=== PATIENT | female | born 1980 | race Caucasian/White ===

== ENCOUNTER 2017-04-08 08:19 | Outpatient (RCR) | payer MEDICAID | END 2017-04-22 15:24 | disposition home or self-care (01) | PROVIDERS: ATTEND Nurse Practitioner Adult Health | DX: M54.41 Lumbago with sciatica, right side (principal); M54.42 Lumbago with sciatica, left side ==

== ENCOUNTER → 2018-05-31 | Outpatient (CLI) | payer MEDICAID ==
--- NOTE | 2018-05-31 10:55 | Diagnostic Imaging Report ---
Clinical indication: Patient with chronic hepatitis C. Exam: Ultrasound of the right upper quadrant. Comparison: None. Findings: Limited exam due to patient body habitus. The pancreas is visualized on this exam and obscured by patient body habitus. There appears to be grossly normal echogenicity and echotexture involving the liver, as visualized. The main portal vein demonstrates hepatopetal flow. The liver surface is smooth. The liver is mildly enlarged measuring 17 cm. There is no intrahepatic ductal dilation. Common bile duct is obscured and unable to be measured. Gallbladder shows no stones or sludge and is unremarkable. There is no pericholecystic fluid. Right kidney is unremarkable. No hydronephrosis or mass. Right kidney measures 11.7 cm in craniocaudal dimension. There is no abdominal ascites. Impression: 1: Mild hepatomegaly. Otherwise, there is no other gross abnormality involving the liver. 2: Incomplete visualization of the pancreas. If there is clinical concern for pancreatic abnormality, serology tests or CT scan may better evaluate. 3: Common bile duct is obscured and could not be evaluated. Dictated by: Dictated on workstation # [id number]
== END ==
LOC: RAD 06:52
PROVIDERS: ATTEND Internal Medicine Infectious Disease
DX: B18.2 Chronic viral hepatitis C (principal)
CPT/HCPCS: 36415; 76705

== ENCOUNTER 2018-06-04 16:04 | Emergency (ER) | payer MEDICAID ==
[~2018-06-04] VITALS: Ht 182.9 cm; Wt 120.4 kg
--- OUTSIDE RECORDS SUMMARY | 2018-06-04 16:08 | XMS REPORT ---
Author Author ALAN MORALES [facility] Address [address] [place] [address] Care Team Providers Care Child Health Associate Name Role Phone GAURANG BORDEN Unavailable ALAN MORALES Unavailable Problems Problem SNOMED Onset Date Resolved Date Status Mental health problem 782586005 Active Drug therapy finding 279281280 Active Severe recurrent major depression without psychotic features 53390044 Active Allergies, Adverse Reactions Substance Code Type Code Type Reaction Severity Status SULFA (sulfonamide) SNOMED CT Active Care Plan Goal Instructions Client will be functioning more independently with supports and have a life worth living. Engage with treatment team to build rapport. Learn and practice coping skills to reduce symptoms and improve functioning. The following Services will be utilized 1 - 3 times until goal is reached: Improve and maintain functioning through medical psychiatric services. Initial Psychiatric Evaluation, Ongoing medication monitoring and management , Case Conference with multidisciplinary members of the [facility] team as indicated, and/or Collaboration and coordination with outside medical providers as indicated by providing the following services: 76185 interactive complexity 51975 psychiatric diagnostic eval w/ meds 28749 30 min psychotherapy add-on 44885 45 [place] [address] 60 min psychotherapy add-on 65161 med injection 79268 New Patient E&M (level 1) 66947 New Patient E&M (level 2) 12673 New Patient E&M (level 3) 90557 New patient E&M (level 4) 65021 New Patient E&M (level 5) 44579 Established Patient E&M (level 1) 14336 Established Patient E&M (level 2) 75018 Established Patient E&M (level 3) 76364 Established Patient E&M (level 4) 61120 Established Patient E&M (level 5 ) 9935x prolonged service code 80379 case conference w/o clt & pauline w/ 28720 case conference w/o clt w/ H0038 Peer Support Christiana Client will be functioning more independently with supports and have a life worth living. Engage with treatment team to build rapport. Learn and practice coping skills to reduce symptoms and improve functioning. The following Services will be utilized 1 - 3 times until goal is reached: Improve and maintain functioning through medical psychiatric services. Initial Psychiatric Evaluation, Ongoing medication monitoring and management , Case Conference with multidisciplinary members of the [facility] team as indicated, and/or Collaboration and coordination with outside medical providers as indicated by providing the following services: 43059 interactive complexity 21303 psychiatric diagnostic eval w/ meds 83919 30 min psychotherapy add-on 28622 45 [place] [address] 60 min psychotherapy add-on 77975 med injection 19808 New Patient E&M (level 1) 25678 New Patient E&M (level 2) 42743 New Patient E&M (level 3) 32140 New patient E&M (level 4) 79392 New Patient E&M (level 5) 64771 Established Patient E&M (level 1) 10628 Established Patient E&M (level 2) 61930 Established Patient E&M (level 3) 85560 Established Patient E&M (level 4) 38850 Established Patient E&M (level 5 ) 9935x prolonged service code 85912 case conference w/o derian & pauline w/ 23638 case conference w/o derian costa/ H0038 Peer Support Christiana Medications Medication Code Dose,Form,Route,Freq Start Date End Date Venlafaxine HCl - 150 MG ORAL Capsule, Extended Release 682481 Take one (1) capsule by mouth every morning Venlafaxine HCl - 75 MG ORAL Capsule, Extended Release 331223 Take one (1) capsule by mouth every morning Prazosin HCl - 5 MG ORAL Capsule 19801220 Take two (2) capsules by mouth at bedtime Melatonin - 5 MG ORAL Capsule 19951227 Take one (1) capsule by mouth at bedtime Lab Results NA Encounters Date Time Service Code Provider 09:45:00 am ALAN MORALES Family History Functional Status NA Immunizations NA Vital Signs Date Time BP Pulse Temp Height Weight BMI 02:09:00 pm 160 over 103 86 bpm 72 in 293.4 lbs 39.8 kg/m^2 Social History Date Smoking Status SNOMED Code Current Every Day Smoker 325840191 Hospital Discharge Instructions NA Instructions * Not Applicable Procedures Date Procedure Code Type Code Provider Volatile drug screen (procedure) SNOMED CT 346433892 Purpose Electronic Copy
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
--- OUTSIDE RECORDS SUMMARY | 2018-06-04 16:10 | XMS REPORT ---
Author Author JORGE ALBERTO DIOR [facility] Address [address] [place] [address] Care Team Providers Care Cop Breaker Name Role Phone JORGE ALBERTO DIOR Unavailable PROBLEMS Type Condition ICD9-CM Code [id number] Code Onset Dates Condition Status SNOMED Code Problem Hep C w/o coma, chronic B18.2 Active 572407635 Problem Seasonal allergic rhinitis, unspecified allergic rhinitis trigger J30.2 Active 347844857 Problem Migraine without aura and without status migrainosus, not intractable G43.009 Active 153601692 Problem Lumbago with sciatica, unspecified side M54.40 Active 882559125 Problem Polysubstance (including opioids) dependence w/o physiol dependence F19.20 Active 94882756 Problem Chronic post-traumatic stress disorder (PTSD) F43.12 Active 559105058 Problem Blood pressure elevated without history of HTN R03.0 Active 614396125 Problem Other depression F32.8 Active 061163483 ALLERGIES Unknown Allergies SOCIAL HISTORY No smoking Hx information available PLAN OF CARE VITAL SIGNS MEDICATIONS Medication Instructions Dosage Frequency Start Date End Date Duration Status Naproxen 500 MG Orally every 12 hrs 1 tablet as needed 12h 19 Aug, 2016 30 days Active Tamiflu 75 MG Orally Once a day 1 capsule 24h Sep, 10 days Active RESULTS No Results PROCEDURES No Known procedures IMMUNIZATIONS No Known Immunizations
--- OUTSIDE RECORDS SUMMARY | 2018-06-04 16:10 | XMS REPORT ---
Author Author JORGE ALBERTO DIOR [facility] Address [address] [place] [address] Care Team Providers Care Photo Technologist Name Role Phone JORGE ALBERTO DIOR Unavailable PROBLEMS Type Condition ICD9-CM Code [id number] Code Onset Dates Condition Status SNOMED Code Problem Hep C w/o coma, chronic B18.2 Active 276139322 Problem Seasonal allergic rhinitis, unspecified allergic rhinitis trigger J30.2 Active 999828493 Problem Migraine without aura and without status migrainosus, not intractable G43.009 Active 921809627 Problem Lumbago with sciatica, unspecified side M54.40 Active 984031204 Problem Polysubstance (including opioids) dependence w/o physiol dependence F19.20 Active 61601521 Problem Chronic post-traumatic stress disorder (PTSD) F43.12 Active 513631860 Problem Blood pressure elevated without history of HTN R03.0 Active 450319023 Problem Other depression F32.8 Active 510215116 ALLERGIES Substance Reaction Event Type Date Status Sulfacetamide Sodium Unknown Drug Allergy Aug, Active SOCIAL HISTORY No smoking Hx information available PLAN OF CARE Activity Details Follow Up 4 Weeks Reason:depression VITAL SIGNS Height 72 in 2016-09-08 Weight 292.2 lbs 2016-09-08 Temperature 97.5 degrees Fahrenheit 2016-09-08 Heart Rate 97 bpm 2016-09-08 Respiratory Rate 16 2016-09-08 BMI 39.63 kg/m2 2016-09-08 Blood pressure systolic 130 mmHg 2016-09-08 Blood pressure diastolic 82 mmHg 2016-09-08 MEDICATIONS Medication Instructions Dosage Frequency Start Date End Date Duration Status Trazodone HCl 100 MG Orally Once a day 3 tablet at bedtime 24h Active Prazosin HCl 2 MG Orally Once a day 1 capsule at bedtime 24h Active Naproxen 500 MG Orally every 12 hrs 1 tablet as needed 12h Aug, Active Venlafaxine HCl 75 MG Orally Twice a day 1 tablet with food 12h May, Active Lexapro 20 mg Orally Once a day 1 tablet 24h Active ZyrTEC 10 mg Orally Once a day 1 tablet 24h Jun, Active Flonase 50 MCG/DOSE Nasally twice a day 1 spray in each nostril 12h Jun Active RESULTS No Results PROCEDURES Procedure Date Ordered Related Diagnosis Body Site Office Visit, Est Pt., Level 3 Sep 08, 2016 IMMUNIZATIONS No Known Immunizations
--- OUTSIDE RECORDS SUMMARY | 2018-06-04 16:10 | XMS REPORT ---
Author Author JORGE ALBERTO DIOR [facility] Address [address] [place] [address] Care Team Providers Care Roving Changer Name Role Phone JORGE ALBERTO DIOR Unavailable PROBLEMS Type Condition ICD9-CM Code LMJ66-GV Code Onset Dates Condition Status SNOMED Code Problem Hep C w/o coma, chronic B18.2 Active 388770088 Problem Seasonal allergic rhinitis, unspecified allergic rhinitis trigger J30.2 Active 386458291 Problem Migraine without aura and without status migrainosus, not intractable G43.009 Active 324711190 Problem Lumbago with sciatica, unspecified side M54.40 Active 535491693 Problem Polysubstance (including opioids) dependence w/o physiol dependence F19.20 Active 96584379 Problem Chronic post-traumatic stress disorder (PTSD) F43.12 Active 480669082 Problem Blood pressure elevated without history of HTN R03.0 Active 839127221 Problem Other depression F32.8 Active 303820848 ALLERGIES Unknown Allergies SOCIAL HISTORY No smoking Hx information available PLAN OF CARE VITAL SIGNS MEDICATIONS Medication Instructions Dosage Frequency Start Date End Date Duration Status Trazodone HCl 100 MG Orally Once a day 3 tablet at bedtime 24h 0 days Active RESULTS No Results PROCEDURES No Known procedures IMMUNIZATIONS No Known Immunizations
--- OUTSIDE RECORDS SUMMARY | 2018-06-04 16:10 | XMS REPORT ---
Author Author JORGE ALBERTO DIOR Organization [employer] Address Unknown Phone Unavailable Care Team Providers Care Check Writer Name Role Phone JORGE ALBEROT DIOR CP Unavailable Allergies No Known Allergies Problems Problem Type Condition Code Onset Dates Condition Status Problem Hep C w/o coma, chronic B18.2 Active Problem Other depression F32.8 Active Problem Seasonal allergic rhinitis, unspecified allergic rhinitis trigger J30.2 Active Problem Sciatica 724.3 Active Problem Other affections of shoulder region, not elsewhere classified 726.2 Active Problem Influenza with other respiratory manifestations 487.1 Active Medications Medication Code System Code Instructions Start Date End Date Status Dosage Venlafaxine HCl [facility] [address]-79 50 mg Orally Twice a day May 27, 2016 1 tablet with food Trazodone HCl [facility] [address]-40 100 MG Orally Once a day 3 tablet at bedtime Lexapro [facility] [address]-56 20 mg Orally Once a day 1 tablet Prazosin HCl [facility] [address]-56 2 MG Orally Once a day 1 capsule at bedtime ZyrTEC NDC 0 10 mg Orally Once a day Jul 01, 2016 1 tablet Results No Known Results Summary Purpose [employer] Submission
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
--- OUTSIDE RECORDS SUMMARY | 2018-06-04 16:11 | XMS REPORT ---
Author Author JORGE ALBERTO DIOR Organization [employer] Address Unknown Phone Unavailable Care Team Providers Care Auto Cleaner Name Role Phone JORGE ALBERTO DIOR CP Unavailable Allergies, Adverse Reactions, Alerts Substance Reaction Event Type Sulfacetamide Sodium Info Not Available Drug Allergy Problems Problem Type Condition Code Onset Dates Condition Status Problem Other affections of shoulder region, not elsewhere classified 726.2 Active Problem Influenza with other respiratory manifestations 487.1 Active Problem Other depression F32.8 Active Problem Sciatica 724.3 Active Assessment Other depression F32.8 Active Medications Medication Code System Code Instructions Start Date End Date Status Dosage Prazosin HCl [facility] [address]-62 1 MG Orally Once a day 1 capsule at bedtime Trazodone HCl [facility] [address]-42 100 MG Orally Once a day 3 tablet at bedtime Lexapro [facility] [address]-50 20 mg Orally Once a day 1 tablet Procedures Procedure Coding System Code Date Office Visit, Est Pt., Level 3 CPT-4 64343 Apr 24, 2016 Vital Signs Date/Time: Apr 24, 2016 Cardiac Monitoring Heart Rate 96 bpm Weight 302.2 lbs Height 72 in BMI 40.98 Index Blood Pressure Diastolic 98 mmHg Blood Pressure Systolic 142 mmHg Results No Known Results Summary Purpose [employer] Submission
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
--- OUTSIDE RECORDS SUMMARY | 2018-06-04 16:12 | XMS REPORT ---
Author Author PATRIC Porter Organization [facility] Address [address] [place] [address] Care Team Providers Care Hand I Blocker Name Role Phone German PATRIC Unavailable PROBLEMS Type Condition ICD9-CM Code EKT07-IN Code Onset Dates Condition Status SNOMED Code Problem Migraine without aura and without status migrainosus, not intractable G43.009 Active 740740159 Problem PTSD (post-traumatic stress disorder) F43.10 Active 36673368 Problem Moderate episode of recurrent major depressive disorder F33.1 Active 666829160 Problem Abnormal menstrual periods N92.6 Active 071058211 Problem Alcohol use disorder, severe, dependence F10.20 Active 050286311 Problem Other chronic pain G89.29 Active 01964593 Problem Low back pain M54.5 Active 355503446 Problem Methamphetamine use disorder, 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 Active 136754595 Problem Borderline personality disorder F60.3 Active 01425316 Problem Seasonal allergic rhinitis, unspecified allergic rhinitis trigger J30.2 Active 980924572 Problem Polysubstance (including opioids) dependence w/o physiol dependence F19.20 Active 73040678 Problem Blood pressure elevated without history of HTN R03.0 Active 330669170 Problem Hep C w/o coma, chronic B18.2 Active 584337143 Problem Other depression F32.8 Active 803034965 Problem Chronic post-traumatic stress disorder (PTSD) F43.12 Active 111436724 Problem Lumbago with sciatica, unspecified side M54.40 Active 576237846 ALLERGIES No Information ENCOUNTERS Encounter Location Date Diagnosis [facility] [id number] [address] Dec, [facility] [address] [facility] [id number] [address]- [address] 13 Nov, 2017 Abnormal menstrual periods N92.6 [facility] [address] [address]- 7325 Nov, Abnormal menstrual periods N92.6 ; PTSD (post-traumatic stress disorder) F43.10 ; Moderate episode of recurrent major depressive disorder F33.1 ; Alcohol use disorder, severe, dependence F10.20 and Methamphetamine use disorder, 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 [facility] [id number] [place] [address] 28402- 6550 Aug, Chronic post-traumatic stress disorder (PTSD) F43.12 and Moderate episode of recurrent major depressive disorder F33.1 [address] [id number] Jul, [id number] [place] [address] [id number] Jul, [place] [id number] [place] [address] 03416- 0996 Jun, [place] [id number] [place] [address] 54912- 0010 Jun, [place] [id number] [place] [address] 50545- 5747 Jun, [place] [id number] [place] [address] 37524- 6144 Jun, Encounter for test, result unknown Z32.00 ; Borderline personality disorder F60.3 ; Moderate episode of recurrent major depressive disorder F33.1 ; PTSD (post-traumatic stress disorder) F43.10 ; Low back pain M54.5 and Other chronic pain G89.29 [facility] [address] [place] [address] 56270- 2077 Apr, Chronic post-traumatic stress disorder (PTSD) F43.12 [facility] [id number] [place] [address] 76560- 6413 Mar, Blood pressure elevated without history of HTN R03.0 [facility] [id number] [place] [address] 78044- 8387 Mar, Chronic post-traumatic stress disorder (PTSD) F43.12 [facility] [address] [address]- 0956 Mar, [place] [address] [place] [address] 84267- 1228 Feb, Chronic post-traumatic stress disorder (PTSD) F43.12 [place] [address] [address]- 6479 Feb, [place] [address] [place] [address] 26252- 1247 Feb, [place] [id number] [place] [address] 78205- 5816 Feb, Polysubstance (including opioids) dependence w/o physiol dependence F19.20 [id number] [place] [address] 39488- 0900 Feb, Seasonal allergic rhinitis, unspecified allergic rhinitis trigger J30.2 ; Chronic post-traumatic stress disorder (PTSD) F43.12 ; Migraine without aura and without status migrainosus, not intractable G43.009 ; Blood pressure elevated without history of HTN R03.0 ; Lumbago with sciatica, unspecified side M54.40 ; Hx of herpes genitalis Z86.19 and History of drug abuse Z87.898 [address] [place] [address] 43849- 7938 Feb, [place] [address] [place] [address] 89734- 8579 Feb, Chronic post-traumatic stress disorder (PTSD) F43.12 and Polysubstance (including opioids) dependence w/o physiol dependence F19.20 [place] [address] [place] [address] 61153- 4386 Feb, Migraine without aura and without status migrainosus, not intractable G43.009 ; Blood pressure elevated without history of HTN R03.0 and Screening cholesterol level Z13.220 [place] [id number] [place] [address] 06757- 9493 Feb, Migraine without aura and without status migrainosus, not intractable G43.009 ; Blood pressure elevated without history of HTN R03.0 ; Hep C w/o coma, chronic B18.2 ; Lumbago with sciatica, unspecified side M54.40 ; Other depression F32.8 ; Seasonal allergic rhinitis, unspecified allergic rhinitis trigger J30.2 and Screening cholesterol level Z13.220 [place] [address] [address]26- 5683 January, [place] [address] 12239- 4281 January, Migraine without aura and without status migrainosus, not intractable G43.009 [place] [address] 09821- 2021 January, Chronic post-traumatic stress disorder (PTSD) F43.12 and Polysubstance (including opioids) dependence w/o physiol dependence F19.20 [place] [id number] [place] [address] 18269- 4909 January, Routine gynecological examination Z01.419 and Routine screening for STI (sexually transmitted infection) Z11.3 [facility] [id number] [place] [address] [phone] Sep, Other depression F32.8 [facility] [id number] [place] [address] [id number] Sep, Other depression F32.8 and Seasonal allergic rhinitis, unspecified allergic rhinitis trigger J30.2 [facility] [id number] [place] [address] [id number] Sep, Other depression F32.8 [facility] [address] [id number] Aug, Other depression F32.8 ; Pain in right ankle and joints of right foot M25.571 and Hep C w/o coma, chronic B18.2 [facility] [address] [id number] Aug, [facility] [id number] [place] [address] [id number] Jul, [facility] [id number] [place] [address] [id number] Jun, Other depression F32.8 ; Seasonal allergic rhinitis, unspecified allergic rhinitis trigger J30.2 and Hep C w/o coma, chronic B18.2 [facility] [id number] [place] [address] [id number] May, Other depression F32.8 [facility] [id number] [place] [address] [id number] Apr, Other depression F32.8 [facility] [address] 7[address]01- 2146 Dec, [facility] [address] 20710- 4865 Dec, [facility] [address] 21456- 2546 Aug, [facility] [id number] [place] [address] 47305- 2543 Aug, [facility] [id number] [place] [address] [id number] Apr, [facility] [id number] [place] [address] 22042- 2546 Apr, [facility] [id number] [place] [address] [id number] Mar, [facility] [id number] [place] [address] [id number] January, [facility] [id number] [place] [address] [id number] January, [facility] [id number] [place] [address] [id number] January, [facility] [id number] [place] [address] [id number] Oct, [facility] [id number] [place] [address] [id number] Mar, [facility] [address] [facility] [id number] [place] [address]- 8542 Aug, [facility] [place] [facility] [address] [id number] [place] 1449 Aug, [facility] [place] [facility] [address] [facility] [id number] [place] [address]- 2907 Aug, [facility] [place] [facility] [address] [id number] [place] [address]- 2874 Aug, [facility] [place] [facility] [address] [facility] [id number] [place] [address]- 6354 Aug, [facility] [place] [facility] [address] [id number] [place] [address]- 9423 Jul, [facility] [place] [facility] [address] [facility] [id number] [address]- 3632 Jul, [facility] [place] [facility] [address] [facility] [id number] [place] [address]- 1251 Jul, [facility] [place] [facility] [address] [facility] [id number] [address]- 8697 Jun, [facility] [place] [facility] [address] [facility] [id number] [place] [address]- 2899 Apr, [facility] [place] [facility] [address] [facility] [id number] [place] [address]- 6763 Aug, [facility] [place] [facility] [address] [facility] [id number] [place] [address]- 6755 Aug, [facility] [place] [facility] [address] [facility] [id number] [place] [address]- 8156 Aug, [facility] [place] [facility] [address] [facility] [id number] [place] [address]- 6120 Jul, [facility] [place] [facility] [address] [facility] [id number] [place] [address]- 3684 Jul, [facility] [place] [facility] [address] [facility] [id number] [place] [address]- 4966 Nov, [facility] [address] [facility] [id number] [place] [address]- 2674 Oct, [facility] [address] [id number] [address]- 0593 Sep, [facility] [address] [facility] [id number] [place] [address]- 9020 Aug, [facility] [address] [facility] [id number] [place] [address]- 2025 Feb, IMMUNIZATIONS No Known Immunizations SOCIAL HISTORY Never Assessed REASON FOR VISIT Requests return call PLAN OF CARE VITAL SIGNS MEDICATIONS Unknown [...] frontal lobe from car acciedent/ hospital in [place] 2007 Hospitalization History [facility]-Mental stay 2016
--- OUTSIDE RECORDS SUMMARY | 2018-06-04 16:12 | XMS REPORT ---
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 Name Role Phone German PATRIC Unavailable PROBLEMS Type Condition ICD9-CM Code HZI35-VO Code Onset Dates Condition Status SNOMED Code Problem Migraine without aura and without status migrainosus, not intractable G43.009 Active 350639529 Problem PTSD (post-traumatic stress disorder) F43.10 Active 71868423 Problem Moderate episode of recurrent major depressive disorder F33.1 Active 508333100 Problem Abnormal menstrual periods N92.6 Active 619693889 Problem Alcohol use disorder, severe, dependence F10.20 Active 536059644 Problem Other chronic pain G89.29 Active 85374808 Problem Low back pain M54.5 Active 310963478 Problem Methamphetamine use disorder, 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 Active 839191784 Problem Borderline personality disorder F60.3 Active 59715940 Problem Seasonal allergic rhinitis, unspecified allergic rhinitis trigger J30.2 Active 334922928 Problem Polysubstance (including opioids) dependence w/o physiol dependence F19.20 Active 13176805 Problem Blood pressure elevated without history of HTN R03.0 Active 882139866 Problem Hep C w/o coma, chronic B18.2 Active 373966814 Problem Other depression F32.8 Active 631988980 Problem Chronic post-traumatic stress disorder (PTSD) F43.12 Active 848280436 Problem Lumbago with sciatica, unspecified side M54.40 Active 342329707 ALLERGIES No Information ENCOUNTERS Encounter Location Date Diagnosis [facility] [id number], [place] [address] Dec, [facility] [address] [facility] [id number], [place] [address] 13 Nov, 2017 Abnormal menstrual periods N92.6 [facility] [address], [place] [address] Nov, Abnormal menstrual periods N92.6 ; PTSD (post-traumatic stress disorder) F43.10 ; Moderate episode of recurrent major depressive disorder F33.1 ; Alcohol use disorder, severe, dependence F10.20 and Methamphetamine use disorder, 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 [facility] [id number] [place] [address] Aug, Chronic post-traumatic stress disorder (PTSD) F43.12 and Moderate episode of recurrent major depressive disorder F33.1 [address] [id number] Jul, [id number] [place] [id number] Jul, [id number] [place] [address] Jun, [place] [id number] [place] [address] Jun, [place] [id number] [place] [address]- [address] Jun, [place] [place] [id number] [place] [address] Jun, Encounter for test, result unknown Z32.00 ; Borderline personality disorder F60.3 ; Moderate episode of recurrent major depressive disorder F33.1 ; PTSD (post-traumatic stress disorder) F43.10 ; Low back pain M54.5 and Other chronic pain G89.29 [facility] [address] [place] [address] Apr, Chronic post-traumatic stress disorder (PTSD) F43.12 [facility] [id number] [place] [address] Mar, Blood pressure elevated without history of HTN R03.0 [facility] [id number] [place] [address]- 238[address] Mar, Chronic post-traumatic stress disorder (PTSD) F43.12 [facility] [address], [place] [address] Mar, [address] [place] [address]679[address] 40[address] Feb, Chronic post-traumatic stress disorder (PTSD) F43.12 [place] [place], [place] [address] Feb, [address] [place] [address] [place] [address] 5[address] Feb, [place] [id number] [place] [address]71[address] Feb, Polysubstance (including opioids) dependence w/o physiol dependence F19.20 [id number] [place] [address] Feb, Seasonal allergic rhinitis, unspecified allergic rhinitis trigger J30.2 ; Chronic post-traumatic stress disorder (PTSD) F43.12 ; Migraine without aura and without status migrainosus, not intractable G43.009 ; Blood pressure elevated without history of HTN R03.0 ; Lumbago with sciatica, unspecified side M54.40 ; Hx of herpes genitalis Z86.19 and History of drug abuse Z87.898 [address] [place] [address] 48263- 8[address] Feb, [address] [place] [address]28- 6089 Feb, Chronic post-traumatic stress disorder (PTSD) F43.12 and Polysubstance (including opioids) dependence w/o physiol dependence F19.20 [address] [place] [address] 36066- 8468 Feb, Migraine without aura and without status migrainosus, not intractable G43.009 ; Blood pressure elevated without history of HTN R03.0 and Screening cholesterol level Z13.220 [address] [id number] [place] [address] 76265- 8360 Feb, Migraine without aura and without status migrainosus, not intractable G43.009 ; Blood pressure elevated without history of HTN R03.0 ; Hep C w/o coma, chronic B18.2 ; Lumbago with sciatica, unspecified side M54.40 ; Other depression F32.8 ; Seasonal allergic rhinitis, unspecified allergic rhinitis trigger J30.2 and Screening cholesterol level Z13.220 [address] [address] January, [address] [address] [address] January, Migraine without aura and without status migrainosus, not intractable G43.009 [address] [address] [address] January, Chronic post-traumatic stress disorder (PTSD) F43.12 and Polysubstance (including opioids) dependence w/o physiol dependence F19.20 [address] [id number] [place] [address] January, Routine gynecological examination Z01.419 and Routine screening for STI (sexually transmitted infection) Z11.3 [facility] [id number] [place] [address] [id number] Sep, Other depression F32.8 [facility] [id number] [place] [address] [id number] Sep, Other depression F32.8 and Seasonal allergic rhinitis, unspecified allergic rhinitis trigger J30.2 [facility] [id number] [place] [address] [id number] Sep, Other depression F32.8 [facility] [address] [id number] Aug, Other depression F32.8 ; Pain in right ankle and joints of right foot M25.571 and Hep C w/o coma, chronic B18.2 [facility] [address] [id number] Aug, [facility] [id number] [place] [address] [id number] Jul, [facility] [id number] [place] [address] [phone] Jun, Other depression F32.8 ; Seasonal allergic rhinitis, unspecified allergic rhinitis trigger J30.2 and Hep C w/o coma, chronic B18.2 [facility] [id number] [place] [address] [phone] May, Other depression F32.8 [facility] [id number] [place] [address] [id number] Apr, Other depression F32.8 [facility] [address] [address] Dec, [facility] [address] [address] Dec, [facility] [address] [address] Aug, [facility] [id number] [place] [address] 01484- [address] Aug, [facility] [id number] [place] [address] [id number] Apr, [facility] [id number] [place] [address] 0[address]25- [address] Apr, [facility] [id number] [place] [address] [id number] Mar, [facility] [id number] [place] [address] [id number] January, [facility] [id number] [place] [address] [id number] January, [facility] [id number] [place] [address] [id number] January, [facility] [id number] [place] [address] [id number] Oct, [facility] [id number] [place] [address] [id number] Mar, [facility] [address] [facility] [id number] [place] [address] Aug, [facility] [place] [facility] [address] [id number] [place] Aug, [facility] [place] [facility] [address] [facility] [id number] [place] [address] Aug, [facility] [place] [facility] [address] [id number] [place] [address] Aug, [facility] [place] [facility] [address] [facility] [id number] [place] [address] Aug, [facility] [place] [facility] [address] [id number] [place] [address] Jul, [facility] [place] [facility] [address] [facility] [id number], [place] [address] Jul, [facility] [place] [facility] [address] [facility] [id number] [place] [address]- 0[address] Jul, [facility] [place] [facility] [address] [facility] [id number], [place] [address] Jun, [facility] [place] [facility] [address] [facility] [id number], [place] [address] Apr, [facility] [place] [facility] [address] [facility] [id number], [place] [address] Aug, [facility] [place] [facility] [address] [facility] [id number], [place] [address] Aug, [facility] [place] [facility] [address] [facility] [id number], [place] [address] Aug, [facility] [place] [facility] [address] [facility] [id number], [place] [address] Jul, [facility] [place] [facility] [address] [facility] [id number], [place] [address] Jul, [facility] [place] [facility] [address] [facility] [id number] [place] [address] Nov, [facility] [address] [facility] [id number], [place] [address] Oct, [facility] [address] [facility] [id number], [place] [address] Sep, [facility] [address] [facility] [id number], [place] [address] Aug, [facility] [address] [facility] [id number], [place] [address] Feb, IMMUNIZATIONS No Known Immunizations SOCIAL HISTORY Never Assessed REASON FOR VISIT PT PLAN OF CARE VITAL SIGNS MEDICATIONS Unknown [...] frontal lobe from car acciedent/ hospital in [place] 2007 Hospitalization History [facility]-Mental stay 2016
--- OUTSIDE RECORDS SUMMARY | 2018-06-04 16:12 | XMS REPORT ---
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 Name Role Phone JORGE ALBERTO DIOR CP Unavailable Allergies, Adverse Reactions, Alerts Substance Reaction Event Type Sulfacetamide Sodium Info Not Available Drug Allergy Problems Problem Type Condition Code Onset Dates Condition Status Assessment Seasonal allergic rhinitis, unspecified allergic rhinitis trigger J30.2 Active Assessment Hep C w/o coma, chronic B18.2 Active Problem Hep C w/o coma, chronic B18.2 Active Problem Other depression F32.8 Active Problem Seasonal allergic rhinitis, unspecified allergic rhinitis trigger J30.2 Active Problem Sciatica 724.3 Active Assessment Other depression F32.8 Active Problem Other affections of shoulder region, not elsewhere classified 726.2 Active Problem Influenza with other respiratory manifestations 487.1 Active Medications Medication Code System Code Instructions Start Date End Date Status Dosage Venlafaxine HCl [facility] [address]-75 50 MG Orally Twice a day May 27, 2016 1 tablet with food Xanax [facility] [address]-94 0.5 MG Orally 2 times a day as needed for severe anxiety attacks May 27, 2016 .5-1 tablet Trazodone HCl [facility] [address]-71 100 MG Orally Once a day 3 tablet at bedtime Flonase NDC 0 50 MCG/DOSE Nasally twice a day Jul 01, 2016 1 spray in each nostril ZyrTEC NDC 0 10 mg Orally Once a day Jul 01, 2016 1 tablet Lexapro [facility] [address]-34 20 mg Orally Once a day 1 tablet Prazosin HCl [facility] [address]-49 2 MG Orally Once a day 1 capsule at bedtime Procedures Procedure Coding System Code Date Office Visit, Est Pt., Level 3 CPT-4 40644 Jul 01, 2016 VENIPUNCT, ROUTINE* CPT-4 08352 Jul 01, 2016 [facility]-4 NOBLL Jul 01, 2016 DRUG SCREEN NON TLC DEVICES CPT-4 87683 Jul 01, 2016 Vital Signs Date/Time: Jul 01, 2016 Cardiac Monitoring Heart Rate 88 bpm Weight 300.6 lbs Height 72 in BMI 40.76 Index Blood Pressure Diastolic 70 mmHg Blood Pressure Systolic 126 mmHg Results Name Result Date Reference Range Unit Abnormality Flag HEPATITIS PROFILE ----Hep A Ab, IgM Negative 20160701 Negative ----HBsAg Screen Negative 20160701 Negative ----Hep B Core Ab, IgM Negative 20160701 Negative ----Hep C Virus Ab >11.0 20160701 0.0-0.9 s/co ratio H URINE DRUG SCREEN (IN HOUSE) ----THC neg 20160701 ----MTD neg 20160701 ----BENZO neg 20160701 ----OPIATE neg 20160701 ----BAR neg 20160701 ----OXY neg 20160701 ----PCP neg 20160701 ----BUP neg 20160701 ----COCAINE neg 20160701 ----MDMA neg 20160701 ----AMPH neg 20160701 ----Exp date 20160701 ----MAMP neg 20160701 ----TCA neg 20160701 ----Control + [id number] ----Lot # [id number] Summary Purpose eClinicalWorks Submission
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
[2018-06-04] MEDS ORDERED: PROMETHAZINE/ CODEINE SYRUP 5 ML UDC PO ONE (17:00)
--- NOTE | 2018-06-04 17:35 | ED Cough/URI ---
General Chief Complaint: Cough/Cold/Flu Symptoms Stated Complaint: COUGH/CONGESTION Source: patient Exam Limitations: no limitations History of Present Illness Date Seen by Provider: Jun 04, 2018 Time Seen by Provider: 17:29 Initial Comments Patient is a 38-year-old female who presents to the emergency room with complaints of cough, sore throat and congestion that started last week. She denies fevers. She reports taking fyge-ysn-acazexh cold cough flu medications with minimal relief. Timing/Duration: week Severity/Quality: mild, dry cough Prior Episodes/Possible Cause: no prior episodes Associated Symptoms: cough, nasal congestion, sore throat Allergies and Home Medications Allergies Coded Allergies: Sulfa (Sulfonamides) (Verified Allergy, Unknown, 05/10/07) Patient Home Medication List Home Medication List Reviewed: Yes Review of Systems Review of Systems Constitutional: see HPI; No chills, No fever EENTM: see HPI, nose congestion, throat pain Respiratory: see HPI, cough (dry cough no sputum or phlegm.) All Other Systems Reviewed Negative Unless Noted: Yes Past Hjisyxc-Kszcxk-Dgmgck Hx Past Med/Social Hx: Reviewed Nursing Past Med/Soc Hx Patient Social History Recent Foreign Travel: No Contact w/Someone Who Travel: No Past Medical History Reproductive Disorders: No Family Medical History Reviewed Nursing Family Hx Physical Exam Vital Signs - First Documented 06/04/18 16:43 Temp 98.4 Pulse 112 Resp 16 B/P (MAP) 132/93 (106) Pulse Ox 99 Capillary Refill : Height: '" Weight: lbs. oz. kg; BMI Method: General Appearance: WD/WN, no apparent distress Eyes: Bilateral Eye Normal Inspection, Bilateral Eye PERRL, Bilateral Eye EOMI HEENT: PERRL/EOMI, normal ENT inspection, TMs normal, pharynx normal Respiratory: chest non-tender, lungs clear, normal breath sounds, no respiratory distress, no accessory muscle use Cardiovascular: regular rate, rhythm, no edema, no gallop, no JVD, no murmur Neurologic/Psychiatric: alert, normal mood/affect, oriented x 3 Skin: normal color, warm/dry Progress/Results/Core Measures Suspected Sepsis SIRS Temperature: Pulse: Respiratory Rate: Blood Pressure / Mean: Results/Orders Lab Results Laboratory Tests Test 06/04/18 16:48 Range/Units Group A Streptococcus Screen NEGATIVE NEGATIVE My Orders Orders - SHAVONNE EPPERSON Rapid Strep A Screen (06/04/18 16:50) Promethazine/ Codeine Syrup (Phenergan W (06/04/18 17:00) Medications Given in ED Current Medications Medications Dose Ordered Sig/Karina Route Start Time Stop Time Status Last Admin Dose Admin Promethazine HCl/ Codeine 5 ml ONCE ONCE PO 06/04/18 17:00 06/04/18 17:01 DC 06/04/18 17:11 5 ML Vital Signs/I&O 06/04/18 06/04/18 16:43 17:52 Temp 98.4 Pulse 112 81 Resp 16 16 B/P (MAP) 132/93 (106) 141/76 Pulse Ox 99 99 Capillary Refill : Progress Note : Time: 17:32 Progress Note Seen and evaluated the patient. She's had relief of coughing with medication. I informed her that I'll be sending her prescription for cough syrup. Given her normal exam and non productive cough I believe her symptoms are from a viral illness. She agrees with plans of care, plans for discharge, return precautions given. Departure Impression Primary Impression: Upper respiratory infection Disposition: 01 HOME, SELF-CARE Condition: Stable/Unchanged Departure-Patient Inst. Decision time for Depature: 17:34 Referrals: [facility] (PCP/Family) Primary Care Physician Patient Instructions: Viral Upper Respiratory Infection, Adult (DC) Add. Discharge Instructions: Take cough syrup as directed. Continue to use your kttf-thx-wgbimbn medications as needed for cough cold and flu. Follow-up with your doctor within 1 week for recheck. Return back to the emergency room for any worsening symptoms or concerns as needed. All discharge instructions reviewed with patient and/or family. Voiced understanding. SHAVONNE EPPERSON Jun 04, 2018 17:35
[2018-06-04 17:52] VITALS: BP 141/76
== END 2018-06-04 17:52 | disposition home or self-care (01) ==
LOC: EDUNIT# 16:04 → ER 16:05
DX: J06.9 Acute upper respiratory infection, unspecified (principal); Z88.2 Allergy status to sulfonamides
CPT/HCPCS: 87430

== ENCOUNTER 2018-09-19 09:25 | Emergency (ER) | payer MEDICAID ==
[~2018-09-19] VITALS: Ht 182.9 cm; Wt 140.6 kg
--- OUTSIDE RECORDS SUMMARY | 2018-09-19 09:30 | XMS REPORT ---
Author Author BRYADELA [facility] Address [address] [place] [address] Care Team Providers Care Duct Layer Supervisor Name Role Phone GREERADELA FINNEY Unavailable PROBLEMS Type Condition ICD9-CM Code [id number] Code Onset Dates Condition Status SNOMED Code Problem Moderate episode of recurrent major depressive disorder F33.1 Active 777766235 Problem Abnormal menstrual periods N92.6 Active 049753727 Problem Borderline personality disorder F60.3 Active 00952851 Problem PTSD (post-traumatic stress disorder) F43.10 Active 30284522 Problem Mood disorder F39 Active 36762267 Problem Alcohol use disorder, severe, dependence F10.20 Active 272804010 Problem Methamphetamine use disorder, 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 Active 889855046 Problem Essential hypertension I10 Active 86385413 Problem Spondylolisthesis at L5-S1 level M43.17 Active 393701664 Problem Polysubstance (including opioids) dependence w/o physiol dependence F19.20 Active 62588471 Problem Chronic post-traumatic stress disorder (PTSD) F43.12 Active 561156331 Problem Seasonal allergic rhinitis, unspecified allergic rhinitis trigger J30.2 Active 485602878 Problem Lumbago with sciatica, unspecified side M54.40 Active 012289150 Problem Hep C w/o coma, chronic B18.2 Active 180635465 Problem Migraine without aura and without status migrainosus, not intractable G43.009 Active 377619591 ALLERGIES No Information ENCOUNTERS Encounter Location Date Diagnosis [facility] [address] [id number] [address] Aug, [facility] [address] [address] Jul, [facility] [id number] [address] Jul, [place] [id number] [place] [address] 4048 Jun, PTSD (post-traumatic stress disorder) F43.10 [place] [id number] [place] [address]2093- 7890 Jun, [place] [address] [address] Jun, Weight loss counseling, encounter for Z71.3 ; Encounter for initial prescription of contraceptive pills Z30.011 and BMI 40.0-44.9, adult Z68.41 [place] [id number] [place] [address] 35564- 0102 Jun, PTSD (post-traumatic stress disorder) F43.10 ; Moderate episode of recurrent major depressive disorder F33.1 ; Alcohol use disorder, severe, dependence F10.20 ; Methamphetamine use disorder, 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 ; Mood disorder F39 and BMI 40.0-44.9, adult Z68.41 [place] [id number] [place] [address]69- 7634 27 May, 2018 Hep C w/o coma, chronic B18.2 [place] [id number] [place] [address] 89365- 3596 May, PTSD (post-traumatic stress disorder) F43.10 [place] [id number] [place] [address] 99645- 4084 May, Essential hypertension I10 ; BMI 40.0-44.9, adult Z68.41 ; Weight loss counseling, encounter for Z71.3 and Lumbago with sciatica, unspecified side M54.40 [place] [id number] [place] [address] 93293- 8007 May, Essential hypertension I10 [place] [id number] [place] [address] 87473- 5405 Apr, PTSD (post-traumatic stress disorder) F43.10 ; Moderate episode of recurrent major depressive disorder F33.1 ; Alcohol use disorder, severe, dependence F10.20 ; Methamphetamine use disorder, 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 ; Mood disorder F39 and BMI 40.0-44.9, adult Z68.41 [place] [id number] [place] [address] 49851- 8206 Apr, [facility] [place] [id number] [place] [address] 25749- 6111 Apr, Spondylolisthesis at L5-S1 level M43.17 ; Low back pain M54.5 ; Other chronic pain G89.29 ; Essential hypertension I10 and BMI 40.0-44.9 , adult Z68.41 [place] [address] 540553- 6778 Mar, [facility] [id number] [place] [address] 06366- 7588 Mar, PTSD (post-traumatic stress disorder) F43.10 ; Moderate episode of recurrent major depressive disorder F33.1 ; Alcohol use disorder, severe, dependence F10.20 ; Methamphetamine use disorder, 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 and BMI 40.0-44.9, adult Z68.41 [place] [id number] [place] [address] 25972- 7308 Dec, [place] [id number] [place] [address] 76043- 8047 Dec, Abnormal menstrual periods N92.6 [facility] [place] [id number] [place] [address] 91792- 3606 Nov, Abnormal menstrual periods N92.6 [place] [id number] [place] [address] 40189- 1167 Nov, Abnormal menstrual periods N92.6 ; PTSD (post-traumatic stress disorder) F43.10 ; Moderate episode of recurrent major depressive disorder F33.1 ; Alcohol use disorder, severe, dependence F10.20 and Methamphetamine use disorder, 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 [place] [id number] [place] [address] 40973- 6480 Aug, Chronic post-traumatic stress disorder (PTSD) F43.12 and Moderate episode of recurrent major depressive disorder F33.1 [facility] [id number] [id number] Jul, [facility] [address] [id number] Jul, [facility] [id number] [place] [address] 19900- 9086 Jun, [facility] [id number] [place] [address] 29456- 6322 Jun, [facility] [id number] [place] [address] 85148- 7537 Jun, [place] [id number] [place] [address] 93854- 5133 Jun, Encounter for test, result unknown Z32.00 ; Borderline personality disorder F60.3 ; Moderate episode of recurrent major depressive disorder F33.1 ; PTSD (post-traumatic stress disorder) F43.10 ; Low back pain M54.5 and Other chronic pain G89.29 [place] [id number] [place] [address] 92118- 6223 Apr, Chronic post-traumatic stress disorder (PTSD) F43.12 [facility] [address], [place] [address] Mar, Blood pressure elevated without history of HTN R03.0 [facility] [address], [place] [address] Mar, Chronic post-traumatic stress disorder (PTSD) F43.12 [facility] [address], [place] [address] Mar, [facility] [id number] [place] [address] 20683- 8715 Feb, Chronic post-traumatic stress disorder (PTSD) F43.12 [facility] [id number] [place] [address] 12846- 9750 Feb, [place] [id number] [place] [address] 42506- 4740 Feb, [facility] [place] [id number] [place] [address] 13648- 5474 Feb, Polysubstance (including opioids) dependence w/o physiol dependence F19.20 [facility] [place] [id number] [place] [address] 58366- 6835 Feb, Seasonal allergic rhinitis, unspecified allergic rhinitis trigger J30.2 ; Chronic post-traumatic stress disorder (PTSD) F43.12 ; Migraine without aura and without status migrainosus, not intractable G43.009 ; Blood pressure elevated without history of HTN R03.0 ; Lumbago with sciatica, unspecified side M54.40 ; Hx of herpes genitalis Z86.19 and History of drug abuse Z87.898 [place] [id number] [place] [address] 32361- 9650 Feb, [place] [id number] [place] [address] 84399- 2827 Feb, Chronic post-traumatic stress disorder (PTSD) F43.12 and Polysubstance (including opioids) dependence w/o physiol dependence F19.20 [place] [address] [place] [address] 78650- 7493 Feb, Migraine without aura and without status migrainosus, not intractable G43.009 ; Blood pressure elevated without history of HTN R03.0 and Screening cholesterol level Z13.220 [place] [address] [place] [address] 63255- 3873 05 Feb, 2017 Migraine without aura and without status migrainosus, not intractable G43.009 ; Blood pressure elevated without history of HTN R03.0 ; Hep C w/o coma, chronic B18.2 ; Lumbago with sciatica, unspecified side M54.40 ; Other depression F32.8 ; Seasonal allergic rhinitis, unspecified allergic rhinitis trigger J30.2 and Screening cholesterol level Z13.220 [place] [id number] [place] [address] 77746- 7079 January, [place] [address] [address] January, Migraine without aura and without status migrainosus, not intractable G43.009 [place] [id number] [place] [address] 80734- 1984 January, Chronic post-traumatic stress disorder (PTSD) F43.12 and Polysubstance (including opioids) dependence w/o physiol dependence F19.20 [place] [id number] [place] [address] 27915- 8030 January, Routine gynecological examination Z01.419 and Routine screening for STI (sexually transmitted infection) Z11.3 [facility] [address] [id number] Sep, Other depression F32.8 [facility] [address] [id number] Sep, Other depression F32.8 and Seasonal allergic rhinitis, unspecified allergic rhinitis trigger J30.2 [facility] [address] [id number] Sep, Other depression F32.8 [facility] [id number] [place] [address] [id number] Aug, Other depression F32.8 ; Pain in right ankle and joints of right foot M25.571 and Hep C w/o coma, chronic B18.2 [facility] [id number] [place] [address] [id number] Aug, [facility] [id number] [place] [address] [id number] Jul, [facility] [address] [id number] Jun, Other depression F32.8 ; Seasonal allergic rhinitis, unspecified allergic rhinitis trigger J30.2 and Hep C w/o coma, chronic B18.2 [facility] [address] [place] [id number] May, Other depression F32.8 [facility] [id number] [place] [address] [id number] Apr, Other depression F32.8 [facility] [id number] [place] [address] 71449- 4669 Dec, [facility] [id number] [place] [address] 57001- 4245 Dec, [facility] [id number] [place] [address] 86883- 9786 Aug, [facility] [id number] [place] [address] 21765- 9804 Aug, [facility] [id number] [place] [address] [id number] Apr, [facility] [id number] [place] [address] 00558- 2546 Apr, [facility] [id number] [id number] Mar, [facility] [id number] [place] [address] [id number] January, [facility] [id number] [place] [address] [id number] January, [facility] [id number] [id number] January, [facility] [id number] [id number] Oct, [facility] [address] [id number] [id number] Mar, [facility] [address] [place] [address] 36816- 0780 Aug, [facility] [place] [facility] [address], [place] [address] Aug, [facility] [address] [address] Aug, [facility] [place] [facility] [address] [id number] [place] [address] 2549 05 Aug, 2011 [facility] [place] [facility] [address] [id number] [place] [address]- 7200 Aug, [facility] [place] [facility] [address] [id number] [place] [address]- 3686 Jul, [facility] [place] [facility] [address] [id number] [place] [address]- 4675 Jul, [facility] [place] [facility] [address] [id number] [place] [address]- 4396 Jul, [facility] [place] [facility] [address] [id number] [place] [address]- 4939 Jun, [facility] [address] [id number] [place] [address]- 0842 Apr, [facility] [address] [id number] [place] [address]- 4383 Aug, [facility] [place] [facility] [address] [id number] [place] [address]- 0315 15 Aug, 2010 [facility] [place] [facility] [address] [id number] [place] [address]- 8903 Aug, [facility] [place] [facility] [address] [id number] [place] [address]- 4388 Jul, [facility] [place] [facility] [address] [id number] [place] [address]- 9446 Jul, [facility] [place] [facility] [address] [id number] [place] [address]- 1486 Nov, [facility] [place] [facility] [address] [id number] [place] [address]- 8776 10 Oct, 2009 [facility] [place] [facility] [address] [id number] [place] [address]- 2546 14 Sep, 2009 [facility] [place] [facility] [address] [id number] [place] [address]- [address] Aug, [facility] [address] [id number] [place] [address]- 2546 Feb, IMMUNIZATIONS No Known Immunizations SOCIAL HISTORY Never Assessed REASON FOR VISIT anxiety PLAN OF CARE VITAL SIGNS MEDICATIONS Medication Instructions Dosage Frequency Start Date End Date Duration Status Latuda 60 MG Orally Once a day 1 tablet with food 24h Apr, 30 days Active RESULTS No Results PROCEDURES [...] frontal lobe from car acciedent/ hospital in [place] 2007 Hospitalization History [facility]-Mental stay 2016
--- OUTSIDE RECORDS SUMMARY | 2018-09-19 09:31 | XMS REPORT ---
Author Author ARY MCCAULEY [facility] Address [address] [place] [address] Care Team Providers Care Curtain Framer Name Role Phone ARY MCCAULEY Unavailable PROBLEMS Type Condition ICD9-CM Code [id number] Code Onset Dates Condition Status SNOMED Code Problem Moderate episode of recurrent major depressive disorder F33.1 Active 124223846 Problem Abnormal menstrual periods N92.6 Active 930989069 Problem Borderline personality disorder F60.3 Active 63938589 Problem PTSD (post-traumatic stress disorder) F43.10 Active 72988226 Problem Mood disorder F39 Active 24142722 Problem Alcohol use disorder, severe, dependence F10.20 Active 287157580 Problem Methamphetamine use disorder, 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 Active 723533122 Problem Essential hypertension I10 Active 22931009 Problem Spondylolisthesis at L5-S1 level M43.17 Active 482281390 Problem Polysubstance (including opioids) dependence w/o physiol dependence F19.20 Active 03133074 Problem Chronic post-traumatic stress disorder (PTSD) F43.12 Active 406748449 Problem Seasonal allergic rhinitis, unspecified allergic rhinitis trigger J30.2 Active 475517530 Problem Lumbago with sciatica, unspecified side M54.40 Active 982865932 Problem Hep C w/o coma, chronic B18.2 Active 847162863 Problem Migraine without aura and without status migrainosus, not intractable G43.009 Active 038332385 ALLERGIES No Information ENCOUNTERS Encounter Location Date Diagnosis [facility] [address] [facility] [id number] [address] Aug, [facility] [address] [id number] [address] Jun, [facility] [address] [id number], [place] [address] Jun, PTSD (post-traumatic stress disorder) F43.10 ; Moderate episode of recurrent major depressive disorder F33.1 ; Alcohol use disorder, severe, dependence F10.20 ; Methamphetamine use disorder, 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 ; Mood disorder F39 and BMI 40.0-44.9, adult Z68.41 [place] [id number] [place] [address] May, Hep C w/o coma, chronic B18.2 [place] [address] [address] May, PTSD (post-traumatic stress disorder) F43.10 [place] [address] [address] May, Essential hypertension I10 ; BMI 40.0-44.9, adult Z68.41 ; Weight loss counseling, encounter for Z71.3 and Lumbago with sciatica, unspecified side M54.40 [place] [address] [address] May, Essential hypertension I10 [address] [address] Apr, PTSD (post-traumatic stress disorder) F43.10 ; Moderate episode of recurrent major depressive disorder F33.1 ; Alcohol use disorder, severe, dependence F10.20 ; Methamphetamine use disorder, 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 ; Mood disorder F39 and BMI 40.0-44.9, adult Z68.41 [place] [id number] [place] [address]12- 2547 17 Apr, [address] [address] 13 Apr, 2018 Spondylolisthesis at L5-S1 level M43.17 ; Low back pain M54.5 ; Other chronic pain G89.29 ; Essential hypertension I10 and BMI 40.0-44.9 , adult Z68.41 [place] [address] [address] Mar, [place] [address] [place] [address]70- 0017 Mar, PTSD (post-traumatic stress disorder) F43.10 ; Moderate episode of recurrent major depressive disorder F33.1 ; Alcohol use disorder, severe, dependence F10.20 ; Methamphetamine use disorder, 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 and BMI 40.0-44.9, adult Z68.41 [place] [id number] [place] [address] 76517- 0483 Dec, [place] [id number] [place] [address] 24803- 1395 Dec, Abnormal menstrual periods N92.6 [place] [id number] [place] [address] 07622- 8101 Nov, Abnormal menstrual periods N92.6 [place] [id number] [place] [address] 05279- 8767 Nov, Abnormal menstrual periods N92.6 ; PTSD (post-traumatic stress disorder) F43.10 ; Moderate episode of recurrent major depressive disorder F33.1 ; Alcohol use disorder, severe, dependence F10.20 and Methamphetamine use disorder, 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 [place] [id number] [place] [address] 42495- 6786 Aug, Chronic post-traumatic stress disorder (PTSD) F43.12 and Moderate episode of recurrent major depressive disorder F33.1 [address] [place] [address] [id number] Jul, [facility] [address] [place] [address] [id number] Jul, [place] [id number] [place] [address] 74730- 0492 Jun, [place] [id number] [place] [address] 90895- 8718 Jun, [place] [id number] [place] [address] 60851- 1672 Jun, [place] [address] [place] [address] 21613- 9422 Jun, Encounter for test, result unknown Z32.00 ; Borderline personality disorder F60.3 ; Moderate episode of recurrent major depressive disorder F33.1 ; PTSD (post-traumatic stress disorder) F43.10 ; Low back pain M54.5 and Other chronic pain G89.29 [place] [id number] [place] [address] 02945- 4393 Apr, Chronic post-traumatic stress disorder (PTSD) F43.12 [place] [id number] [place] [address] 03791- 4389 Mar, Blood pressure elevated without history of HTN R03.0 [place] [id number] [place] [address] 02463- 3606 Mar, Chronic post-traumatic stress disorder (PTSD) F43.12 [place] [id number] [place] [address] 15331- 6369 Mar, [place] [id number] [place] [address] 15190- 5051 Feb, Chronic post-traumatic stress disorder (PTSD) F43.12 [place] [id number] [place] [address] 49663- 6440 Feb, [place] [id number] [place] [address] 50654- 6195 Feb, [place] [id number] [place] [address] 61236- 5080 Feb, Polysubstance (including opioids) dependence w/o physiol dependence F19.20 [place] [id number] [place] [address] 26408- 0613 Feb, Seasonal allergic rhinitis, unspecified allergic rhinitis trigger J30.2 ; Chronic post-traumatic stress disorder (PTSD) F43.12 ; Migraine without aura and without status migrainosus, not intractable G43.009 ; Blood pressure elevated without history of HTN R03.0 ; Lumbago with sciatica, unspecified side M54.40 ; Hx of herpes genitalis Z86.19 and History of drug abuse Z87.898 [place] [address] [place] [address] 77454- 2040 Feb, [place] [id number] [place] [address] 46022- 5313 Feb, Chronic post-traumatic stress disorder (PTSD) F43.12 and Polysubstance (including opioids) dependence w/o physiol dependence F19.20 [place] [id number] [place] [address] 33746- 3147 Feb, Migraine without aura and without status migrainosus, not intractable G43.009 ; Blood pressure elevated without history of HTN R03.0 and Screening cholesterol level Z13.220 [place] [id number] [place] [address] 97148- 7209 Feb, Migraine without aura and without status migrainosus, not intractable G43.009 ; Blood pressure elevated without history of HTN R03.0 ; Hep C w/o coma, chronic B18.2 ; Lumbago with sciatica, unspecified side M54.40 ; Other depression F32.8 ; Seasonal allergic rhinitis, unspecified allergic rhinitis trigger J30.2 and Screening cholesterol level Z13.220 [place] [id number] [place] [address] 03045- 2357 January, [place] [id number] [place] [address] 52329- 6411 January, Migraine without aura and without status migrainosus, not intractable G43.009 [place] [id number] [place] [address] 42442- 1549 January, Chronic post-traumatic stress disorder (PTSD) F43.12 and Polysubstance (including opioids) dependence w/o physiol dependence F19.20 [place] [id number] [place] [address] 27019- 9537 January, Routine gynecological examination Z01.419 and Routine screening for STI (sexually transmitted infection) Z11.3 [facility] [id number] [place] [address] [id number] Sep, Other depression F32.8 [facility] [address] [id number] Sep, Other depression F32.8 and Seasonal allergic rhinitis, unspecified allergic rhinitis trigger J30.2 [facility] [id number] [place] [address] [id number] Sep, Other depression F32.8 [facility] [id number] [place] [address] [id number] Aug, Other depression F32.8 ; Pain in right ankle and joints of right foot M25.571 and Hep C w/o coma, chronic B18.2 [facility] [id number] [place] [address] [id number] Aug, [facility] [id number] [place] [address] [id number] Jul, [facility] [id number] [place] [address] [id number] Jun, Other depression F32.8 ; Seasonal allergic rhinitis, unspecified allergic rhinitis trigger J30.2 and Hep C w/o coma, chronic B18.2 [facility] [id number] [place] [address] [id number] May, Other depression F32.8 [facility] [id number] [place] [address] [id number] Apr, Other depression F32.8 [facility] [id number] [place] [address] 49955- 7640 Dec, [facility] [address] [address]- 3183 Dec, [facility] [id number] [place] [address] 22756- 6130 Aug, [facility] [address] 926946- 0591 Aug, [facility] [address] [id number] [place] [id number] Apr, [facility] [address] [facility] [id number] [address] Apr, [facility] [address] [id number] [place] [id number] Mar, [facility] [address] [id number] [place] [id number] January, [facility] [address] [id number] [place] [id number] January, [facility] [address] [id number] [place] [id number] January, [facility] [address] [id number] [place] [id number] Oct, [facility] [address] [place] [address] [id number] [place] [id number] Mar, [facility] [address], [place] [address]- [address] Aug, [facility] [address], [place] [address]- [address]83 Aug, [facility] [address], [place] [address]- 6[address] Aug, [facility] [address], [place] [address]- 2546 Aug, [facility] [id number], [place] [address]- 2546 Aug, [facility] [id number], [place] [address]- [address]46 Jul, [facility] [address] [facility] [id number], [place] [address]- [address]46 Jul, [facility] [address] [id number], [place] [address]- 2546 Jul, [facility] [id number] [address] Jun, [facility] [address] [id number], [place] [address] 7948 Apr, [facility] [address] [facility] [id number], [place] [address]- [address]01 Aug, [facility] [address] [id number], [place] [address]- 9266 Aug, [facility] [address], [place] [address]- 5216 Aug, [facility] [address], [place] [address]- 6697 Jul, [facility] [address], [place] [address]- 2411 Jul, [facility] [address], [place] [address]- 5968 Nov, [facility] [address], [place] [address]- 2827 Oct, [facility] [address], [place] [address]- 0828 Sep, [facility] [address] [id number], [place] [address]- 4147 Aug, [facility] [id number], [place] [address]- 8150 Feb, IMMUNIZATIONS No Known Immunizations SOCIAL HISTORY Never Assessed REASON FOR VISIT lab order PLAN OF CARE VITAL SIGNS MEDICATIONS Unknown [...] frontal lobe from car acciedent/ hospital in [place] 2007 Hospitalization History [facility]-Mental stay 2016
--- OUTSIDE RECORDS SUMMARY | 2018-09-19 09:31 | XMS REPORT ---
Author Author BRYADELA Organization [facility] Address [address] [place] [address] Care Team Providers Care Cardboard Cutter Name Role Phone ADELA LONDONO Unavailable PROBLEMS Type Condition ICD9-CM Code XRY21-GM Code Onset Dates Condition Status SNOMED Code Problem Moderate episode of recurrent major depressive disorder F33.1 Active 196664608 Problem Abnormal menstrual periods N92.6 Active 698214369 Problem Borderline personality disorder F60.3 Active 08902234 Problem PTSD (post-traumatic stress disorder) F43.10 Active 63437303 Problem Mood disorder F39 Active 26828927 Problem Alcohol use disorder, severe, dependence F10.20 Active 689505526 Problem Methamphetamine use disorder, 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 Active 785748622 Problem Essential hypertension I10 Active 51477388 Problem Spondylolisthesis at L5-S1 level M43.17 Active 717673304 Problem Polysubstance (including opioids) dependence w/o physiol dependence F19.20 Active 61681186 Problem Chronic post-traumatic stress disorder (PTSD) F43.12 Active 465056536 Problem Seasonal allergic rhinitis, unspecified allergic rhinitis trigger J30.2 Active 105387914 Problem Lumbago with sciatica, unspecified side M54.40 Active 999312167 Problem Hep C w/o coma, chronic B18.2 Active 063130790 Problem Migraine without aura and without status migrainosus, not intractable G43.009 Active 829056346 ALLERGIES No Information ENCOUNTERS Encounter Location Date Diagnosis [facility] [address] [facility] [id number] [address] Aug, [facility] [address] [id number] [address] Jun, [facility] [address] [id number] [address] Jun, PTSD (post-traumatic stress disorder) F43.10 ; Moderate episode of recurrent major depressive disorder F33.1 ; Alcohol use disorder, severe, dependence F10.20 ; Methamphetamine use disorder, 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 ; Mood disorder F39 and BMI 40.0-44.9, adult Z68.41 [place] [id number] [place] [address]82- 5462 May, Hep C w/o coma, chronic B18.2 [place] [address] [address] May, PTSD (post-traumatic stress disorder) F43.10 [place] [address] [address] May, Essential hypertension I10 ; BMI 40.0-44.9, adult Z68.41 ; Weight loss counseling, encounter for Z71.3 and Lumbago with sciatica, unspecified side M54.40 [place] [address] [address] May, Essential hypertension I10 [address] [address] Apr, PTSD (post-traumatic stress disorder) F43.10 ; Moderate episode of recurrent major depressive disorder F33.1 ; Alcohol use disorder, severe, dependence F10.20 ; Methamphetamine use disorder, 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 ; Mood disorder F39 and BMI 40.0-44.9, adult Z68.41 [place] [id number] [place] [address]055- 5629 Apr, [place] [id number] [place] [address] 72456- 1373 Apr, Spondylolisthesis at L5-S1 level M43.17 ; Low back pain M54.5 ; Other chronic pain G89.29 ; Essential hypertension I10 and BMI 40.0-44.9 , adult Z68.41 [place] [address] [address] Mar, [place] [address] [place] [address] 66837- 6586 Mar, PTSD (post-traumatic stress disorder) F43.10 ; Moderate episode of recurrent major depressive disorder F33.1 ; Alcohol use disorder, severe, dependence F10.20 ; Methamphetamine use disorder, 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 and BMI 40.0-44.9, adult Z68.41 [place] [id number] [place] [address] 09596- 5328 Dec, [place] [id number] [place] [address] 71355- 0432 Dec, Abnormal menstrual periods N92.6 [place] [id number] [place] [address] 35456- 8755 Nov, Abnormal menstrual periods N92.6 [place] [id number] [place] [address] 75959- 3870 Nov, Abnormal menstrual periods N92.6 ; PTSD (post-traumatic stress disorder) F43.10 ; Moderate episode of recurrent major depressive disorder F33.1 ; Alcohol use disorder, severe, dependence F10.20 and Methamphetamine use disorder, 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 [place] [id number] [place] [address] 31474- 5892 Aug, Chronic post-traumatic stress disorder (PTSD) F43.12 and Moderate episode of recurrent major depressive disorder F33.1 [address] [id number] Jul, [facility] [address] [place] [id number] Jul, [place] [id number] [place] [address] 06968- 6951 Jun, [place] [id number] [place] [address] 17149- 8330 Jun, [place] [id number] [place] [address] 65964- 7625 Jun, [place] [address] [place] [address] 23823- 6131 Jun, Encounter for test, result unknown Z32.00 ; Borderline personality disorder F60.3 ; Moderate episode of recurrent major depressive disorder F33.1 ; PTSD (post-traumatic stress disorder) F43.10 ; Low back pain M54.5 and Other chronic pain G89.29 [place] [address] 05181- 8[address] Apr, Chronic post-traumatic stress disorder (PTSD) F43.12 [place] [id number] [place] [address] 41735- 5881 Mar, Blood pressure elevated without history of HTN R03.0 [place] [id number] [place] [address] 95451- 1921 Mar, Chronic post-traumatic stress disorder (PTSD) F43.12 [place] [id number] [place] [address] 23680- 6959 Mar, [place] [id number] [place] [address] 84276- 4814 Feb, Chronic post-traumatic stress disorder (PTSD) F43.12 [place] [id number] [place] [address] 62283- 3009 Feb, [place] [id number] [place] [address] 03882- 1548 Feb, [place] [id number] [place] [address] 47626- 9381 Feb, Polysubstance (including opioids) dependence w/o physiol dependence F19.20 [place] [id number] [place] [address] 03404- 1280 Feb, Seasonal allergic rhinitis, unspecified allergic rhinitis trigger J30.2 ; Chronic post-traumatic stress disorder (PTSD) F43.12 ; Migraine without aura and without status migrainosus, not intractable G43.009 ; Blood pressure elevated without history of HTN R03.0 ; Lumbago with sciatica, unspecified side M54.40 ; Hx of herpes genitalis Z86.19 and History of drug abuse Z87.898 [place] [id number] [place] [address] 50350- 6902 Feb, [place] [id number] [place] [address] 31066- 7035 Feb, Chronic post-traumatic stress disorder (PTSD) F43.12 and Polysubstance (including opioids) dependence w/o physiol dependence F19.20 [place] [id number] [place] [address] 20454- 3870 Feb, Migraine without aura and without status migrainosus, not intractable G43.009 ; Blood pressure elevated without history of HTN R03.0 and Screening cholesterol level Z13.220 [place] [id number] [place] [address] 36443- 1623 Feb, Migraine without aura and without status migrainosus, not intractable G43.009 ; Blood pressure elevated without history of HTN R03.0 ; Hep C w/o coma, chronic B18.2 ; Lumbago with sciatica, unspecified side M54.40 ; Other depression F32.8 ; Seasonal allergic rhinitis, unspecified allergic rhinitis trigger J30.2 and Screening cholesterol level Z13.220 [place] [id number] [place] [address] 53212- 0104 January, [place] [id number] [place] [address] 31795- 8902 January, Migraine without aura and without status migrainosus, not intractable G43.009 [place] [id number] [place] [address] 47525- 5514 January, Chronic post-traumatic stress disorder (PTSD) F43.12 and Polysubstance (including opioids) dependence w/o physiol dependence F19.20 [place] [id number] [place] [address] 87697- 9852 January, Routine gynecological examination Z01.419 and Routine screening for STI (sexually transmitted infection) Z11.3 [facility] [place] [id number] [place] [address] [id number] Sep, Other depression F32.8 [facility] [place] [id number] [place] [address] [id number] Sep, Other depression F32.8 and Seasonal allergic rhinitis, unspecified allergic rhinitis trigger J30.2 [facility] [place] [id number] [place] [address] [id number] Sep, Other depression F32.8 [facility] [place] [id number] [place] [address] [id number] Aug, Other depression F32.8 ; Pain in right ankle and joints of right foot M25.571 and Hep C w/o coma, chronic B18.2 [facility] [place] [id number] [place] [address] [id number] Aug, [facility] [id number] [place] [address] [id number] Jul, [facility] [id number] [place] [address] [id number] Jun, Other depression F32.8 ; Seasonal allergic rhinitis, unspecified allergic rhinitis trigger J30.2 and Hep C w/o coma, chronic B18.2 [facility] [place] [id number] [place] [address] [id number] May, Other depression F32.8 [facility] [id number] [place] [address] [id number] Apr, Other depression F32.8 [facility] [address] [place] [address] 22624- 3438 Dec, [facility] [address] 51605- 3561 Dec, [facility] [id number] [place] [address] 803289- 0461 Aug, [facility] [address] 181080- 4069 Aug, [facility] [address] [id number] [place] [id number] Apr, [facility] [address] [facility] [id number] [address] Apr, [facility] [address] [id number] [place] [id number] Mar, [facility] [address] [id number] [place] [id number] January, [facility] [address] [id number] [place] [phone] January, [facility] [address] [id number] [place] [id number] January, [facility] [address] [id number] [place] [id number] Oct, [facility] [address] [id number] [place] [id number] Mar, [facility] [address] [facility] [id number], [place] [address] Aug, [facility] [address] [address] Aug, [facility] [address] [address] Aug, [facility] [address] [address] Aug, [facility] [address] [address] Aug, [facility] [address] [facility] [id number], [place] [address]- [address] Jul, [facility] [address] [facility] [id number], [place] [address]- [address] Jul, [facility] [address] [id number] [address] Jul, [facility] [address] [id number] [address] Jun, [facility] [address] [address] Apr, [facility] [address] [place] [address] 041466- 4949 Aug, [facility] [id number] [place] [address] 01033- 5647 Aug, [facility] [id number] [place] [address] 68296- 8857 Aug, [facility] [id number] [place] [address] 26849- 2974 Jul, [facility] [id number] [place] [address] 44314- 0904 Jul, [facility] [id number] [place] [address] 56173- 4719 Nov, [facility] [id number] [place] [address] 77173- 5405 Oct, [facility] [id number] [place] [address] 37997- 3537 Sep, [facility] [address] [address] Aug, [facility] [id number] [place] [address] 15071- 3793 Feb, IMMUNIZATIONS No Known Immunizations SOCIAL HISTORY Never Assessed REASON FOR VISIT BH f/u- AB/MA PLAN OF CARE Activity Details Follow Up 3 Months Reason: VITAL SIGNS Height 72 in 2018-06-21 Weight 311.9 lbs 2018-06-21 Heart Rate 116 bpm 2018-06-21 Respiratory Rate 20 2018-06-21 BMI 42.30 kg/m2 2018-06-21 Blood pressure systolic 114 mmHg 2018-06-21 Blood pressure diastolic 76 mmHg 2018-06-21 MEDICATIONS Medication Instructions Dosage Frequency Start Date End Date Duration Status Cyclobenzaprine HCl 10 mg Orally TID PRN 1 tablet as needed Active Melatonin 10 MG Orally Once a day 24h Active HydrOXYzine HCl 25 MG Orally TID prn for anxiety 1-2 tablets Mar, Active Latuda 40 MG Orally Once a day 1 tablet with food 24h Apr, Active Losartan Potassium 50 mg Orally Once a day 1 tablet 24h Mar, 30 days Active RESULTS No Results PROCEDURES [...] frontal lobe from car acciedent/ hospital in [place] 2007 Hospitalization History [facility]-Mental stay 2016
--- OUTSIDE RECORDS SUMMARY | 2018-09-19 09:31 | XMS REPORT ---
Author Author BRYADELA Organization [facility] Address [address] [place] [address] Care Team Providers Care Diet Aid Name Role Phone ADELA LONDONO Unavailable PROBLEMS Type Condition ICD9-CM Code CEG09-HP Code Onset Dates Condition Status SNOMED Code Problem Moderate episode of recurrent major depressive disorder F33.1 Active 127765933 Problem Abnormal menstrual periods N92.6 Active 140370862 Problem Borderline personality disorder F60.3 Active 89589364 Problem PTSD (post-traumatic stress disorder) F43.10 Active 29157783 Problem Mood disorder F39 Active 40240749 Problem Alcohol use disorder, severe, dependence F10.20 Active 053776050 Problem Methamphetamine use disorder, 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 Active 592850359 Problem Essential hypertension I10 Active 54410701 Problem Spondylolisthesis at L5-S1 level M43.17 Active 492219328 Problem Polysubstance (including opioids) dependence w/o physiol dependence F19.20 Active 85775786 Problem Chronic post-traumatic stress disorder (PTSD) F43.12 Active 620047989 Problem Seasonal allergic rhinitis, unspecified allergic rhinitis trigger J30.2 Active 151466560 Problem Lumbago with sciatica, unspecified side M54.40 Active 514059136 Problem Hep C w/o coma, chronic B18.2 Active 606573925 Problem Migraine without aura and without status migrainosus, not intractable G43.009 Active 640751932 ALLERGIES No Information ENCOUNTERS Encounter Location Date Diagnosis [facility] [address] [facility] [id number] [address] Aug, [facility] [address] [id number] [address] Jun, [facility] [address] [id number] [address] Jun, PTSD (post-traumatic stress disorder) F43.10 ; Moderate episode of recurrent major depressive disorder F33.1 ; Alcohol use disorder, severe, dependence F10.20 ; Methamphetamine use disorder, 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 ; Mood disorder F39 and BMI 40.0-44.9, adult Z68.41 [place] [id number] [place] [address]61- [address]7 May, Hep C w/o coma, chronic B18.2 [place] [address] [address] May, PTSD (post-traumatic stress disorder) F43.10 [place] [address] [address] May, Essential hypertension I10 ; BMI 40.0-44.9, adult Z68.41 ; Weight loss counseling, encounter for Z71.3 and Lumbago with sciatica, unspecified side M54.40 [place] [address] [address] May, Essential hypertension I10 [address] [address] Apr, PTSD (post-traumatic stress disorder) F43.10 ; Moderate episode of recurrent major depressive disorder F33.1 ; Alcohol use disorder, severe, dependence F10.20 ; Methamphetamine use disorder, 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 ; Mood disorder F39 and BMI 40.0-44.9, adult Z68.41 [place] [id number] [place] [address]51- [address]074 Apr, [place] [id number] [place] [address] 60586- 7837 Apr, Spondylolisthesis at L5-S1 level M43.17 ; Low back pain M54.5 ; Other chronic pain G89.29 ; Essential hypertension I10 and BMI 40.0-44.9 , adult Z68.41 [place] [address] [address] Mar, [place] [id number] [place] [address] 92551- 3680 Mar, PTSD (post-traumatic stress disorder) F43.10 ; Moderate episode of recurrent major depressive disorder F33.1 ; Alcohol use disorder, severe, dependence F10.20 ; Methamphetamine use disorder, 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 and BMI 40.0-44.9, adult Z68.41 [place] [id number] [place] [address] 03531- 2406 Dec, [place] [id number] [place] [address] 52795- 3030 Dec, Abnormal menstrual periods N92.6 [place] [id number] [place] [address] 08344- 2147 Nov, Abnormal menstrual periods N92.6 [place] [id number] [place] [address] 66436- 6070 Nov, Abnormal menstrual periods N92.6 ; PTSD (post-traumatic stress disorder) F43.10 ; Moderate episode of recurrent major depressive disorder F33.1 ; Alcohol use disorder, severe, dependence F10.20 and Methamphetamine use disorder, 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 [place] [id number] [place] [address] 09477- 9692 Aug, Chronic post-traumatic stress disorder (PTSD) F43.12 and Moderate episode of recurrent major depressive disorder F33.1 [id number] [id number] Jul, [facility] [id number] [place] [id number] Jul, [place] [id number] [place] [address] 22081- 6446 Jun, [place] [id number] [place] [address] 71119- 1662 Jun, [place] [id number] [place] [address] 71843- 1615 Jun, [place] [id number] [place] [address] 96247- 2307 Jun, Encounter for test, result unknown Z32.00 ; Borderline personality disorder F60.3 ; Moderate episode of recurrent major depressive disorder F33.1 ; PTSD (post-traumatic stress disorder) F43.10 ; Low back pain M54.5 and Other chronic pain G89.29 [place] [address] [address]77- [address] Apr, Chronic post-traumatic stress disorder (PTSD) F43.12 [place] [id number] [place] [address] 14392- 0761 Mar, Blood pressure elevated without history of HTN R03.0 [place] [id number] [place] [address] 09083- 4274 Mar, Chronic post-traumatic stress disorder (PTSD) F43.12 [place] [id number] [place] [address] 65538- 2199 Mar, [place] [id number] [place] [address] 65160- 9568 Feb, Chronic post-traumatic stress disorder (PTSD) F43.12 [place] [id number] [place] [address] 10135- 9509 Feb, [place] [id number] [place] [address] 75452- 2916 Feb, [place] [id number] [place] [address] 81433- 8043 Feb, Polysubstance (including opioids) dependence w/o physiol dependence F19.20 [place] [id number] [place] [address] 53335- 8608 Feb, Seasonal allergic rhinitis, unspecified allergic rhinitis trigger J30.2 ; Chronic post-traumatic stress disorder (PTSD) F43.12 ; Migraine without aura and without status migrainosus, not intractable G43.009 ; Blood pressure elevated without history of HTN R03.0 ; Lumbago with sciatica, unspecified side M54.40 ; Hx of herpes genitalis Z86.19 and History of drug abuse Z87.898 [place] [id number] [place] [address] 90673- 6721 Feb, [place] [id number] [place] [address] 92953- 1005 Feb, Chronic post-traumatic stress disorder (PTSD) F43.12 and Polysubstance (including opioids) dependence w/o physiol dependence F19.20 [place] [id number] [place] [address] 92535- 6718 Feb, Migraine without aura and without status migrainosus, not intractable G43.009 ; Blood pressure elevated without history of HTN R03.0 and Screening cholesterol level Z13.220 [place] [id number] [place] [address] 12581- 1465 Feb, Migraine without aura and without status migrainosus, not intractable G43.009 ; Blood pressure elevated without history of HTN R03.0 ; Hep C w/o coma, chronic B18.2 ; Lumbago with sciatica, unspecified side M54.40 ; Other depression F32.8 ; Seasonal allergic rhinitis, unspecified allergic rhinitis trigger J30.2 and Screening cholesterol level Z13.220 [place] [id number] [place] [address] 73523- 1692 January, [place] [id number] [place] [address] 88599- 9955 January, Migraine without aura and without status migrainosus, not intractable G43.009 [place] [id number] [place] [address] 02906- 2897 January, Chronic post-traumatic stress disorder (PTSD) F43.12 and Polysubstance (including opioids) dependence w/o physiol dependence F19.20 [place] [id number] [place] [address] 27348- 1587 January, Routine gynecological examination Z01.419 and Routine screening for STI (sexually transmitted infection) Z11.3 [facility] [id number] [place] [address] [id number] Sep, Other depression F32.8 [facility] [id number] [place] [address] [id number] Sep, Other depression F32.8 and Seasonal allergic rhinitis, unspecified allergic rhinitis trigger J30.2 [facility] [id number] [place] [address] [id number] Sep, Other depression F32.8 [facility] [id number] [place] [address] [id number] Aug, Other depression F32.8 ; Pain in right ankle and joints of right foot M25.571 and Hep C w/o coma, chronic B18.2 [facility] [id number] [place] [address] [id number] Aug, [facility] [id number] [place] [address] [id number] Jul, [facility] [id number] [place] [address] [id number] Jun, Other depression F32.8 ; Seasonal allergic rhinitis, unspecified allergic rhinitis trigger J30.2 and Hep C w/o coma, chronic B18.2 [facility] [id number] [place] [address] [id number] May, Other depression F32.8 [facility] [id number] [place] [address] [id number] Apr, Other depression F32.8 [facility] [id number] [place] [address] 67071- 0447 Dec, [facility] [address] 67678- 2443 Dec, [facility] [id number] [place] [address] 979230- 1666 Aug, [facility] [address] 506295- 2952 Aug, [facility] [address] [id number] [place] [id number] Apr, [facility] [address] [facility] [id number] [address] Apr, [facility] [address] [id number] [place] [id number] Mar, [facility] [address] [id number] [place] [id number] January, [facility] [address] [id number] [place] [id number] January, [facility] [address] [id number] [place] [id number] January, [facility] [address] [id number] [place] [id number] Oct, [facility] [address] [id number] [place] [id number] Mar, [facility] [address] [facility] [id number] [address]- [address] Aug, [facility] [id number] [address]- 7[address] Aug, [facility] [id number], [place] [address]- 2546 Aug, [facility] [id number] [address]- 25[address] Aug, [facility] [id number] [address]- 25[address] Aug, [facility] [address] [facility] [id number] [address]- [address]46 Jul, [facility] [address] [facility] [id number] [address]- [address] Jul, [facility] [id number] [address]- [address] Jul, [facility] [address] [id number] [address]- [address] Jun, [facility] [address] [address]- 4[address] Apr, [facility] [id number], [place] [address]- 8297 Aug, [facility] [id number] [address] Aug, [facility] [id number] [address] Aug, [facility] [address] [address]- 1667 Jul, [facility] [address] [address]- 7[address] Jul, [facility] [address] [address] Nov, [facility] [address] [address]- 1111 Oct, [facility] [address] Sep, [facility] [address] [address]- 46[address] Aug, [facility] [address] [id number] Feb, IMMUNIZATIONS No Known Immunizations SOCIAL HISTORY Never Assessed REASON FOR VISIT Medication refill request PLAN OF CARE VITAL SIGNS MEDICATIONS Medication Instructions Dosage Frequency Start Date End Date Duration Status HydrOXYzine HCl 25 MG Orally TID prn for anxiety 1-2 tablets Mar, 30 days Active Latuda 40 MG Orally Once a day 1 tablet with food 24h Apr, 30 day(s) Active RESULTS No Results PROCEDURES [...] frontal lobe from car acciedent/ hospital in [place] 2007 Hospitalization History [facility]-Mental stay 2017
--- OUTSIDE RECORDS SUMMARY | 2018-09-19 09:31 | XMS REPORT ---
Author Author ARY MCCAULEY [facility] Address [address] [place] [address] Care Team Providers Care Facilities Maintenance Assistant Name Role Phone ARY MCCAULEY Unavailable PROBLEMS ALLERGIES ENCOUNTERS IMMUNIZATIONS No Known Immunizations SOCIAL HISTORY No smoking Hx information available REASON FOR VISIT PLAN OF CARE VITAL SIGNS MEDICATIONS RESULTS No Results PROCEDURES INSTRUCTIONS MEDICATIONS ADMINISTERED No Known Medications MEDICAL (GENERAL) HISTORY
--- OUTSIDE RECORDS SUMMARY | 2018-09-19 09:32 | XMS REPORT ---
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 Active 807393828 Problem Abnormal menstrual periods N92.6 Active 198677397 Problem Spondylolisthesis at L5-S1 level M43.17 Active 709604420 Problem Alcohol use disorder, severe, dependence F10.20 Active 502904415 Problem Chronic post-traumatic stress disorder (PTSD) F43.12 Active 848214809 Problem Polysubstance (including opioids) dependence w/o physiol dependence F19.20 Active 77790160 Problem Seasonal allergic rhinitis, unspecified allergic rhinitis trigger J30.2 Active 974808566 Problem Hep C w/o coma, chronic B18.2 Active 510584421 Problem Lumbago with sciatica, unspecified side M54.40 Active 691933198 Problem Migraine without aura and without status migrainosus, not intractable G43.009 Active 896964388 Problem Blood pressure elevated without history of HTN R03.0 Active 850468291 Problem Moderate episode of recurrent major depressive disorder F33.1 Active 958288703 Problem Other depression F32.8 Active 248829171 Problem PTSD (post-traumatic stress disorder) F43.10 Active 65285140 ALLERGIES Substance Reaction Event Type Date Status Sulfamethoxazole-Trimethoprim hives Drug Allergy Apr, Active ENCOUNTERS Encounter Location Date Diagnosis [facility] [address] [facility] [id number] [address] Jun, [place] [id number] [place] [address]5739- 9711 May, [place] [address] [place] [id number] [place] [address] 88372- 6136 Apr, PTSD (post-traumatic stress disorder) F43.10 ; Moderate episode of recurrent major depressive disorder F33.1 ; Alcohol use disorder, severe, dependence F10.20 ; Methamphetamine use disorder, 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 ; Mood disorder F39 and BMI 40.0-44.9, adult Z68.41 [place] [address] [place] [id number] [place] [address]- 1989 Apr, [place] [address] [place] [id number] [place] [address] 56573- 0270 Apr, Spondylolisthesis at L5-S1 level M43.17 ; Low back pain M54.5 ; Other chronic pain G89.29 ; Essential hypertension I10 and BMI 40.0-44.9 , adult Z68.41 [place] [address] [place] [id number] [place] [address] 19630- 4788 Mar, [place] [address] [place] [id number] [place] [address] 62106- 2305 Mar, PTSD (post-traumatic stress disorder) F43.10 ; Moderate episode of recurrent major depressive disorder F33.1 ; Alcohol use disorder, severe, dependence F10.20 ; Methamphetamine use disorder, 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 and BMI 40.0-44.9, adult Z68.41 [place] [id number] [place] [address] 36419- 1081 Dec, [place] [address] [place] [id number] [place] [address] 01290- 3310 Dec, Abnormal menstrual periods N92.6 [place] [id number] [place] [address] 53490- 7173 Nov, Abnormal menstrual periods N92.6 [place] [address] [place] [id number] [place] [address] 06508- 4916 Nov, Abnormal menstrual periods N92.6 ; PTSD (post-traumatic stress disorder) F43.10 ; Moderate episode of recurrent major depressive disorder F33.1 ; Alcohol use disorder, severe, dependence F10.20 and Methamphetamine use disorder, 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 [facility] [id number] [place] [address] 53286- 2512 Aug, Chronic post-traumatic stress disorder (PTSD) F43.12 and Moderate episode of recurrent major depressive disorder F33.1 [facility] [address] [place] [address] [id number] Jul, [facility] [address] [place] [id number] [place] [address] [phone] Jul, [place] [address] [place] [id number] [place] [address] 28168- 7078 Jun, [place] [address] [place] [id number] [place] [address] 26761- 6341 Jun, [facility] [address] [place] [id number] [place] [address] 77445- 7899 Jun, [place] [address] [place] [id number] [place] [address] 91315- 5297 Jun, Encounter for test, result unknown Z32.00 ; Borderline personality disorder F60.3 ; Moderate episode of recurrent major depressive disorder F33.1 ; PTSD (post-traumatic stress disorder) F43.10 ; Low back pain M54.5 and Other chronic pain G89.29 [facility] [id number] [place] [address] 29610- 6382 Apr, Chronic post-traumatic stress disorder (PTSD) F43.12 [place] [address] [place] [id number] [place] [address] 41991- 5985 Mar, Blood pressure elevated without history of HTN R03.0 [facility] [id number] [place] [address] 07090- 0815 Mar, Chronic post-traumatic stress disorder (PTSD) F43.12 [place] [id number] [place] [address] 49990- 1777 Mar, [place] [address] [place] [id number] [place] [address] 09620- 6318 Feb, Chronic post-traumatic stress disorder (PTSD) F43.12 [facility] [address] [place] [id number] [place] [address] 04594- 2262 Feb, [place] [address] [place] [id number] [place] [address] 64413- 4254 Feb, [place] [address] [place] [id number] [place] [address] 68468- 1345 Feb, Polysubstance (including opioids) dependence w/o physiol dependence F19.20 [place] [address] [place] [id number] [place] [address] 11212- 2466 Feb, Seasonal allergic rhinitis, unspecified allergic rhinitis trigger J30.2 ; Chronic post-traumatic stress disorder (PTSD) F43.12 ; Migraine without aura and without status migrainosus, not intractable G43.009 ; Blood pressure elevated without history of HTN R03.0 ; Lumbago with sciatica, unspecified side M54.40 ; Hx of herpes genitalis Z86.19 and History of drug abuse Z87.898 [place] [address] [place] [id number] [place] [address] 74095- 5432 Feb, [place] [address] [place] [id number] [place] [address] 40106- 1568 Feb, Chronic post-traumatic stress disorder (PTSD) F43.12 and Polysubstance (including opioids) dependence w/o physiol dependence F19.20 [place] [address] [place] [id number] [place] [address] 33263- 6996 Feb, Migraine without aura and without status migrainosus, not intractable G43.009 ; Blood pressure elevated without history of HTN R03.0 and Screening cholesterol level Z13.220 [place] [address] [place] [id number] [place] [address] 18005- 4158 Feb, Migraine without aura and without status migrainosus, not intractable G43.009 ; Blood pressure elevated without history of HTN R03.0 ; Hep C w/o coma, chronic B18.2 ; Lumbago with sciatica, unspecified side M54.40 ; Other depression F32.8 ; Seasonal allergic rhinitis, unspecified allergic rhinitis trigger J30.2 and Screening cholesterol level Z13.220 [place] [address] [address]26- [address] January, [place] [address] 07459- 5761 January, Migraine without aura and without status migrainosus, not intractable G43.009 [place] [address] [place] [id number] [place] [address] 41536- 4755 January, Chronic post-traumatic stress disorder (PTSD) F43.12 and Polysubstance (including opioids) dependence w/o physiol dependence F19.20 [place] [address] [place] [id number] [place] [address] 73343- 1426 January, Routine gynecological examination Z01.419 and Routine screening for STI (sexually transmitted infection) Z11.3 [facility] [address] [place] [id number] [place] [address] [phone] Sep, Other depression F32.8 [facility] [address] [place] [id number] [place] [address] [phone] Sep, Other depression F32.8 and Seasonal allergic rhinitis, unspecified allergic rhinitis trigger J30.2 [facility] [address] [place] [id number] [place] [address] [phone] Sep, Other depression F32.8 [facility] [address] [id number] Aug, Other depression F32.8 ; Pain in right ankle and joints of right foot M25.571 and Hep C w/o coma, chronic B18.2 [facility] [address] [place] [id number] [place] [address] [phone] Aug, [facility] [id number] [place] [address] [id number] Jul, [facility] [id number] [place] [address] [id number] Jun, Other depression F32.8 ; Seasonal allergic rhinitis, unspecified allergic rhinitis trigger J30.2 and Hep C w/o coma, chronic B18.2 [facility] [address] [place] [id number] [place] [address] [id number] May, Other depression F32.8 [facility] [address] [place] [id number] [place] [address] [id number] Apr, Other depression F32.8 [facility] [address] 87025- 2546 Dec, [facility] [address] 42626- 2546 Dec, [facility] [address] 08054- 2546 Aug, [facility] [address] [place] [id number] [place] [address] 05900- 2546 Aug, [facility] [address] [place] [id number] [place] [address] [id number] Apr, [facility] [address] [place] [id number] [place] [address] 15399- 2546 Apr, [facility] [id number] [place] [address] [id number] Mar, [facility] [address] [place] [id number] [place] [address] [phone] January, [facility] [id number] [place] [address] [id number] January, [facility] [address] [place] [id number] [place] [address] [id number] January, [facility] [id number] [place] [address] [id number] Oct, [facility] [address] [place] [id number] [place] [address] [id number] Mar, [facility] [place] [facility] [address] [id number] [place] [address]- 8771 Aug, [facility] [place] [facility] [address] [id number] [place] [address]- 1927 Aug, [facility] [place] [facility] [address] [id number] [place] [address]- 5565 Aug, [facility] [place] [facility] [address] [id number] [place] [address]- 6290 Aug, [facility] [address] [id number] [place] Aug, [facility] [place] [facility] [address] [id number] [place] [address]- 7478 Jul, [facility] [address] [id number] [place] [address]- 2085 Jul, [facility] [address] [id number] [place] [address]- 2331 Jul, [facility] [address] [id number] [place] [address]- 9454 Jun, [facility] [address] [id number] [place] [address]- 7472 Apr, [facility] [place] [facility] [address] [id number] [place] [address]- 2625 15 Aug, 2010 [facility] [place] [facility] [address] [id number] [place] [address]- 8209 Aug, [facility] [place] [facility] [address] [id number] [place] [address] Aug, [facility] [place] [facility] [address] [id number] [place] [address]- 5074 Jul, [facility] [place] [facility] [address] [id number] [place] [address]- 1122 Jul, [facility] [place] [facility] [address] [id number] [place] [address] 2546 Nov, [facility] [address] [facility] [id number] [place] [address]- 1326 Oct, [facility] [address] [facility] [id number] [address] 2546 Sep, [facility] [address] [facility] [id number], [place] [address]- 0196 Aug, [facility] [address] [facility] [id number], [place] [address] 2546 Feb, IMMUNIZATIONS No Known Immunizations SOCIAL HISTORY Never Assessed REASON FOR VISIT marguerite/christina Wu MA PLAN OF CARE Activity Details Follow Up 4 Weeks Reason: VITAL SIGNS Height 72 in 2018-05-10 Weight 303.6 lbs 2018-05-10 Heart Rate 93 bpm 2018-05-10 Respiratory Rate 20 2018-05-10 Oximetry 97 % 2018-05-10 BMI 41.17 kg/m2 2018-05-10 Blood pressure systolic 130 mmHg 2018-05-10 Blood pressure diastolic 72 mmHg 2018-05-10 MEDICATIONS Medication Instructions Dosage Frequency Start Date End Date Duration Status HydrOXYzine HCl 25 MG Orally TID prn for anxiety 1-2 tablets Mar, 30 days Active Melatonin 10 MG Orally Once a day 24h Active Latuda 20 MG Orally Once a day 1 tablet every dinner time for one week then take 40mg every dinner time 24h Apr, 7 days Active Losartan Potassium 50 mg Orally Once a day 1 tablet 24h Mar, 30 day(s) Active Cyclobenzaprine HCl 10 mg Orally TID PRN 1 tablet as needed Active Latuda 40 MG Orally Once a [...] frontal lobe from car acciedent/ hospital in [place] 2007 Hospitalization History [facility]-Mental stay 2016
--- OUTSIDE RECORDS SUMMARY | 2018-09-19 09:32 | XMS REPORT ---
Author Author ARY MCCAULEY [facility] Address [address] [place] [address] Care Team Providers Care Medical Billing Instructor Name Role Phone ARY MCCAULEY Unavailable PROBLEMS ALLERGIES No Information ENCOUNTERS IMMUNIZATIONS No Known Immunizations SOCIAL HISTORY No smoking Hx information available REASON FOR VISIT PLAN OF CARE VITAL SIGNS MEDICATIONS RESULTS No Results PROCEDURES No Known procedures INSTRUCTIONS MEDICATIONS ADMINISTERED No Known Medications MEDICAL (GENERAL) HISTORY
--- OUTSIDE RECORDS SUMMARY | 2018-09-19 09:32 | XMS REPORT ---
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 Active 500826579 Problem Abnormal menstrual periods N92.6 Active 692148577 Problem Spondylolisthesis at L5-S1 level M43.17 Active 129674358 Problem Alcohol use disorder, severe, dependence F10.20 Active 354987843 Problem Chronic post-traumatic stress disorder (PTSD) F43.12 Active 762221755 Problem Polysubstance (including opioids) dependence w/o physiol dependence F19.20 Active 40416917 Problem Seasonal allergic rhinitis, unspecified allergic rhinitis trigger J30.2 Active 839616289 Problem Hep C w/o coma, chronic B18.2 Active 798826993 Problem Lumbago with sciatica, unspecified side M54.40 Active 525804785 Problem Migraine without aura and without status migrainosus, not intractable G43.009 Active 956915403 Problem Blood pressure elevated without history of HTN R03.0 Active 442057822 Problem Moderate episode of recurrent major depressive disorder F33.1 Active 304267149 Problem Other depression F32.8 Active 115103357 Problem PTSD (post-traumatic stress disorder) F43.10 Active 73915998 ALLERGIES Substance Reaction Event Type Date Status Sulfamethoxazole-Trimethoprim hives Drug Allergy Apr, Active ENCOUNTERS Encounter Location Date Diagnosis [facility] [address] [facility] [id number] [address] Jun, [facility] [id number] [place] [address] 42762- 2770 May, [facility] [id number] [place] [address] 63583- 5185 Apr, PTSD (post-traumatic stress disorder) F43.10 ; Moderate episode of recurrent major depressive disorder F33.1 ; Alcohol use disorder, severe, dependence F10.20 ; Methamphetamine use disorder, 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 ; Mood disorder F39 and BMI 40.0-44.9, adult Z68.41 [facility] [facility] [id number] [place] [address] 85845- 2532 Apr, [facility] [facility] [id number] [place] [address] 57554- 4777 Apr, Spondylolisthesis at L5-S1 level M43.17 ; Low back pain M54.5 ; Other chronic pain G89.29 ; Essential hypertension I10 and BMI 40.0-44.9 , adult Z68.41 [place] [id number] [place] [address] 91063- 4094 Mar, [facility] [facility] [id number] [place] [address] 60004- 0624 Mar, PTSD (post-traumatic stress disorder) F43.10 ; Moderate episode of recurrent major depressive disorder F33.1 ; Alcohol use disorder, severe, dependence F10.20 ; Methamphetamine use disorder, 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 and BMI 40.0-44.9, adult Z68.41 [place] [address] [place] [address] 14446- 3125 Dec, [facility] [id number] [place] [address] 79220- 9189 Dec, Abnormal menstrual periods N92.6 [facility] [id number] [place] [address] 37539- 4380 Nov, Abnormal menstrual periods N92.6 [place] [address] [place] [address] 13 Nov, 2017 Abnormal menstrual periods N92.6 ; PTSD (post-traumatic stress disorder) F43.10 ; Moderate episode of recurrent major depressive disorder F33.1 ; Alcohol use disorder, severe, dependence F10.20 and Methamphetamine use disorder, 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 [facility] [id number] [place] [address] 36897- 9685 Aug, Chronic post-traumatic stress disorder (PTSD) F43.12 and Moderate episode of recurrent major depressive disorder F33.1 [facility] [id number] [place] [id number] Jul, [address] [id number] Jul, [facility] [place] [id number] [place] [address] 46426- 6339 Jun, [facility] [address] 26627- [address] Jun, [facility] [id number] [place] [address] 52001- 4615 Jun, [place] [address] 82391- 2986 Jun, Encounter for test, result unknown Z32.00 ; Borderline personality disorder F60.3 ; Moderate episode of recurrent major depressive disorder F33.1 ; PTSD (post-traumatic stress disorder) F43.10 ; Low back pain M54.5 and Other chronic pain G89.29 [facility] [id number] [place] [address] 93405- 3632 Apr, Chronic post-traumatic stress disorder (PTSD) F43.12 [place] [address] 74524- 0744 Mar, Blood pressure elevated without history of HTN R03.0 [facility] [id number] [place] [address] 00070- 5727 Mar, Chronic post-traumatic stress disorder (PTSD) F43.12 [place] [address] [place] [address] 66903- 7852 Mar, [facility] [id number] [place] [address] 87178- 6433 Feb, Chronic post-traumatic stress disorder (PTSD) F43.12 [facility] [id number] [place] [address] 47735- 4343 Feb, [facility] [id number] [place] [address] 49891- 0609 Feb, [facility] [id number] [place] [address] 73586- 4343 Feb, Polysubstance (including opioids) dependence w/o physiol dependence F19.20 [facility] [id number] [place] [address] 73168- 8676 Feb, Seasonal allergic rhinitis, unspecified allergic rhinitis trigger J30.2 ; Chronic post-traumatic stress disorder (PTSD) F43.12 ; Migraine without aura and without status migrainosus, not intractable G43.009 ; Blood pressure elevated without history of HTN R03.0 ; Lumbago with sciatica, unspecified side M54.40 ; Hx of herpes genitalis Z86.19 and History of drug abuse Z87.898 [facility] [id number] [place] [address] 95126- 9528 Feb, [place] [address] [place] [address] 35640- 6776 Feb, Chronic post-traumatic stress disorder (PTSD) F43.12 and Polysubstance (including opioids) dependence w/o physiol dependence F19.20 [facility] [id number] [place] [address] 78317- 1474 Feb, Migraine without aura and without status migrainosus, not intractable G43.009 ; Blood pressure elevated without history of HTN R03.0 and Screening cholesterol level Z13.220 [facility] [place] [id number] [place] [address] 43594- 2349 05 Feb, 2017 Migraine without aura and without status migrainosus, not intractable G43.009 ; Blood pressure elevated without history of HTN R03.0 ; Hep C w/o coma, chronic B18.2 ; Lumbago with sciatica, unspecified side M54.40 ; Other depression F32.8 ; Seasonal allergic rhinitis, unspecified allergic rhinitis trigger J30.2 and Screening cholesterol level Z13.220 [place] [address] 38987- 0256 January, [place] [address] 05530- 1659 January, Migraine without aura and without status migrainosus, not intractable G43.009 [place] [address] 27355- 0658 January, Chronic post-traumatic stress disorder (PTSD) F43.12 and Polysubstance (including opioids) dependence w/o physiol dependence F19.20 [facility] [id number] [place] [address] 32962- 1167 January, Routine gynecological examination Z01.419 and Routine screening for STI (sexually transmitted infection) Z11.3 [facility] [id number] [place] [address] [phone] Sep, Other depression F32.8 [facility] [id number] [place] [address] [id number] Sep, Other depression F32.8 and Seasonal allergic rhinitis, unspecified allergic rhinitis trigger J30.2 [facility] [id number] [place] [address] [id number] Sep, Other depression F32.8 [facility] [address] [id number] Aug, Other depression F32.8 ; Pain in right ankle and joints of right foot M25.571 and Hep C w/o coma, chronic B18.2 [facility] [address] [id number] Aug, [facility] [id number] [place] [address] [id number] Jul, [facility] [id number] [place] [address] [phone] Jun, Other depression F32.8 ; Seasonal allergic rhinitis, unspecified allergic rhinitis trigger J30.2 and Hep C w/o coma, chronic B18.2 [facility] [id number] [place] [address] [id number] May, Other depression F32.8 [facility] [id number] [place] [address] [id number] Apr, Other depression F32.8 [facility] [address] 25491- 2546 Dec, [facility] [address] 31853- 9200 Dec, [facility] [address] 62946- 2546 Aug, [facility] [id number] [place] [address] 10608- 2546 Aug, [facility] [id number] [place] [address] [id number] Apr, [facility] [id number] [place] [address] 20166- 2546 Apr, [facility] [id number] [place] [address] [id number] Mar, [facility] [id number] [place] [address] [id number] January, [facility] [id number] [place] [address] [id number] January, [facility] [id number] [place] [address] [id number] January, [facility] [id number] [place] [address] [id number] Oct, [facility] [id number] [place] [address] [id number] Mar, [facility] [address] [id number] [place] [address] 349[address] Aug, [facility] [place] [facility] [address] [id number] [place] [address]- 8356 Aug, [facility] [place] [facility] [address] [id number] [place] [address]- 7790 Aug, [facility] [place] [facility] [address] [id number] [place] [address]- 0125 Aug, [facility] [place] [facility] [address] [id number] [place] [address]- 6728 Aug, [facility] [place] [facility] [address] [id number] [place] [address]- 2541 Jul, [facility] [place] [facility] [address] [id number] [place] [address]- 0107 Jul, [facility] [place] [facility] [address] [id number] [place] [address]- 3254 Jul, [facility] [place] [facility] [address] [id number] [place] [address]- 5410 Jun, [facility] [place] [facility] [address] [id number] [address] Apr, [facility] [place] [facility] [address] [id number] [place] [address]- 0781 15 Aug, 2010 [facility] [place] [facility] [address] [id number] [place] [address]- 7862 15 Aug, 2010 [facility] [place] [facility] [address] [id number] [place] [address]- 4042 Aug, [facility] [place] [facility] [address] [id number] [place] [address]- 6156 Jul, [facility] [place] [facility] [address] [id number] [address] Jul, [facility] [place] [facility] [address] [id number] [place] [address]- 4684 Nov, [facility] [address] [facility] [id number] [place] [address]- 0817 Oct, [facility] [address] [facility] [id number] [place] [address]- 3816 Sep, [facility] [address] [facility] [id number] [place] [address]- 5137 Aug, [facility] [address] [facility] [id number] [place] [address]- [address]237 Feb, IMMUNIZATIONS No Known Immunizations SOCIAL HISTORY Never Assessed REASON FOR VISIT Pain (acute) back/mainly the right side-[facility] [employer]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 PLAN OF CARE Activity Details Follow Up 4 Weeks Reason:est care/BP check Pending Test MRI : Lumbar w/o contrast VITAL SIGNS Height 72 in 2018-05-03 Weight 301 lbs 2018-05-03 Temperature 97.4 degrees Fahrenheit 2018-05-03 Heart Rate 78 bpm 2018-05-03 Respiratory Rate 20 2018-05-03 BMI 40.82 kg/m2 2018-05-03 Blood pressure systolic 148 mmHg 2018-05-03 Blood pressure diastolic 90 mmHg 2018-05-03 MEDICATIONS Medication Instructions Dosage Frequency Start Date End Date Duration Status Cyclobenzaprine HCl 10 mg Orally TID PRN 1 tablet as needed Active Losartan Potassium 50 mg Orally Once a day 1 tablet 24h Mar, 30 day(s) Active MethylPREDNISolone 4 MG as directed Apr, Apr, 6 days Active HydrOXYzine HCl 25 MG Orally TID prn for anxiety 0.5-2 tablets Mar, 30 days Active Melatonin 10 MG Orally Once a day 24h Active Celexa 20 MG Orally Once a day 0.5 tab every day for one week then take full tab daily 24h Mar, 30 day(s) Active RESULTS No [...] frontal lobe from car acciedent/ hospital in [place] 2007 Hospitalization History [facility]-Mental stay 2016
--- OUTSIDE RECORDS SUMMARY | 2018-09-19 09:32 | XMS REPORT ---
Author Author BRYADELA [facility] Address [address] [place] [address] Care Team Providers Care Return Agent Name Role Phone GREERADELA FINNEY Unavailable PROBLEMS Type Condition ICD9-CM Code ZBB21-RU Code Onset Dates Condition Status SNOMED Code Problem Low back pain M54.5 Active 457698782 Problem Borderline personality disorder F60.3 Active 22328739 Problem Other chronic pain G89.29 Active 77434397 Problem Mood disorder F39 Active 24373916 Problem Essential hypertension I10 Active 46927825 Problem Methamphetamine use disorder, 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 Active 299572018 Problem Abnormal menstrual periods N92.6 Active 174978189 Problem Spondylolisthesis at L5-S1 level M43.17 Active 011464780 Problem Alcohol use disorder, severe, dependence F10.20 Active 932709521 Problem Chronic post-traumatic stress disorder (PTSD) F43.12 Active 905566379 Problem Polysubstance (including opioids) dependence w/o physiol dependence F19.20 Active 46033139 Problem Seasonal allergic rhinitis, unspecified allergic rhinitis trigger J30.2 Active 198607327 Problem Hep C w/o coma, chronic B18.2 Active 887836262 Problem Lumbago with sciatica, unspecified side M54.40 Active 162578513 Problem Migraine without aura and without status migrainosus, not intractable G43.009 Active 786728319 Problem Blood pressure elevated without history of HTN R03.0 Active 320836772 Problem Moderate episode of recurrent major depressive disorder F33.1 Active 704723996 Problem Other depression F32.8 Active 811769405 Problem PTSD (post-traumatic stress disorder) F43.10 Active [id number] ALLERGIES No Information ENCOUNTERS Encounter Location Date Diagnosis [facility] [address] [facility] [id number] [address] Jun, [facility] [id number] [place] [address]97- [address]45 May, [place] [id number] [place] [address] 43444- 1035 Apr, PTSD (post-traumatic stress disorder) F43.10 ; Moderate episode of recurrent major depressive disorder F33.1 ; Alcohol use disorder, severe, dependence F10.20 ; Methamphetamine use disorder, 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 ; Mood disorder F39 and BMI 40.0-44.9, adult Z68.41 [place] [id number] [place] [address] 44644- 5982 Apr, [place] [address] [address] Apr, Spondylolisthesis at L5-S1 level M43.17 ; Low back pain M54.5 ; Other chronic pain G89.29 ; Essential hypertension I10 and BMI 40.0-44.9 , adult Z68.41 [place] [id number] [place] [address] 27658- 9273 Mar, [place] [id number] [place] [address] 59760- 3041 Mar, PTSD (post-traumatic stress disorder) F43.10 ; Moderate episode of recurrent major depressive disorder F33.1 ; Alcohol use disorder, severe, dependence F10.20 ; Methamphetamine use disorder, 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 and BMI 40.0-44.9, adult Z68.41 [place] [id number] [place] [address] 70253- 6491 Dec, [place] [id number] [place] [address] 52000- 2853 Dec, Abnormal menstrual periods N92.6 [place] [id number] [place] [address] 87131- 2429 Nov, Abnormal menstrual periods N92.6 [place] [id number] [place] [address] 39688- 4120 13 Mar, 2018 Abnormal menstrual periods N92.6 ; PTSD (post-traumatic stress disorder) F43.10 ; Moderate episode of recurrent major depressive disorder F33.1 ; Alcohol use disorder, severe, dependence F10.20 and Methamphetamine use disorder, 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 [id number] [place] [address] [phone] Jul, [facility] [id number] [place] [address] [id number] Jul, [place] [id number] [place] [address] 14265- 6061 Jun, [place] [id number] [place] [address] 07255- 5208 Jun, [place] [id number] [place] [address] 43269- 9318 Jun, [place] [id number] [place] [address] 03259- 9388 Jun, Encounter for test, result unknown Z32.00 ; Borderline personality disorder F60.3 ; Moderate episode of recurrent major depressive disorder F33.1 ; PTSD (post-traumatic stress disorder) F43.10 ; Low back pain M54.5 and Other chronic pain G89.29 [place] [id number] [place] [address] 43303- 8564 Apr, Chronic post-traumatic stress disorder (PTSD) F43.12 [place] [id number] [place] [address] 45056- 3523 Mar, Blood pressure elevated without history of HTN R03.0 [place] [id number] [place] [address] 12742- 1993 Mar, Chronic post-traumatic stress disorder (PTSD) F43.12 [place] [id number] [place] [address] 59541- 1283 Mar, [place] [address] [address] Feb, Chronic post-traumatic stress disorder (PTSD) F43.12 [place] [address] [address] Feb, [place] [id number] [place] [address] 28885- 1766 Feb, [place] [id number] [place] [address] 15237- 8199 Feb, Polysubstance (including opioids) dependence w/o physiol dependence F19.20 [place] [id number] [place] [address] 72439- 2552 Feb, Seasonal allergic rhinitis, unspecified allergic rhinitis trigger J30.2 ; Chronic post-traumatic stress disorder (PTSD) F43.12 ; Migraine without aura and without status migrainosus, not intractable G43.009 ; Blood pressure elevated without history of HTN R03.0 ; Lumbago with sciatica, unspecified side M54.40 ; Hx of herpes genitalis Z86.19 and History of drug abuse Z87.898 [place] [address] [place] [address] 67886- 4727 Feb, [place] [address] [address] Feb, Chronic post-traumatic stress disorder (PTSD) F43.12 and Polysubstance (including opioids) dependence w/o physiol dependence F19.20 [place] [address] [address] Feb, Migraine without aura and without status migrainosus, not intractable G43.009 ; Blood pressure elevated without history of HTN R03.0 and Screening cholesterol level Z13.220 [place] [address], [place] [address] Feb, Migraine without aura and without status migrainosus, not intractable G43.009 ; Blood pressure elevated without history of HTN R03.0 ; Hep C w/o coma, chronic B18.2 ; Lumbago with sciatica, unspecified side M54.40 ; Other depression F32.8 ; Seasonal allergic rhinitis, unspecified allergic rhinitis trigger J30.2 and Screening cholesterol level Z13.220 [place] [id number] [place] [address] 95508- 2671 January, [place] [address] 87588- 6922 January, Migraine without aura and without status migrainosus, not intractable G43.009 [place] [address] 88350- 5734 January, Chronic post-traumatic stress disorder (PTSD) F43.12 and Polysubstance (including opioids) dependence w/o physiol dependence F19.20 [place] [address] 42696- 6222 January, Routine gynecological examination Z01.419 and Routine screening for STI (sexually transmitted infection) Z11.3 [facility] [address] [id number] Sep, Other depression F32.8 [facility] [id number] [place] [address] [id number] Sep, Other depression F32.8 and Seasonal allergic rhinitis, unspecified allergic rhinitis trigger J30.2 [facility] [id number] [place] [address] [id number] Sep, Other depression F32.8 [facility] [address] [id number] Aug, Other depression F32.8 ; Pain in right ankle and joints of right foot M25.571 and Hep C w/o coma, chronic B18.2 [facility] [id number] [place] [address] [id number] Aug, [facility] [address] [id number] Jul, [facility] [id number] [id number] Jun, Other depression F32.8 ; Seasonal allergic rhinitis, unspecified allergic rhinitis trigger J30.2 and Hep C w/o coma, chronic B18.2 [facility] [id number] [place] [address] [id number] May, Other depression F32.8 [facility] [id number] [place] [address] [id number] Apr, Other depression F32.8 [facility] [id number] [place] [address] 95375- 4113 Dec, [facility] [address] [address] Dec, [facility] [id number] [place] [address] 05294- 0662 Aug, [facility] [id number] [place] [address] 80919- 2546 Aug, [facility] [id number] [place] [address] [id number] Apr, [facility] [id number] [place] [address] 08114- 8316 Apr, [facility] [id number] [place] [address] [id number] Mar, [facility] [id number] [place] [address] [id number] January, [facility] [id number] [place] [address] [id number] January, [facility] [id number] [place] [address] [id number] January, [facility] [id number] [place] [address] [id number] Oct, [facility] [id number] [place] [address] [id number] Mar, [facility] [id number] [place] [address] 44105- 6810 28 Aug, 2011 [facility] [address] [id number] [place] [address]- 1564 14 Aug, 2011 [facility] [place] [facility] [address] [id number] [place] [address]- 9059 14 Aug, 2011 [facility] [place] [facility] [address] [facility] [id number] [place] [address]- 2251 Aug, [facility] [place] [facility] [address] [id number] [place] [address]- 2511 Aug, [facility] [place] [facility] [address] [id number] [place] [address]- 0532 Jul, [facility] [place] [facility] [address] [id number] [place] [address]- 5153 Jul, [facility] [address] [facility] [id number] [place] [address]- 0039 Jul, [facility] [place] [facility] [address] [id number] [place] [address]- 1382 Jun, [facility] [place] [facility] [address] [facility] [id number] [place] [address]- 2884 Apr, [facility] [place] [facility] [address] [facility] [id number] [place] [address]- 4633 15 Aug, 2010 [facility] [place] [facility] [address] [id number] [place] [address]- 5200 15 Aug, 2010 [facility] [place] [facility] [address] [id number] [place] [address]- 5204 Aug, [facility] [place] [facility] [address] [id number] [place] [address]- 8225 Jul, [facility] [place] [facility] [address] [facility] [id number] [place] [address]- 9727 Jul, [facility] [place] [facility] [address] [facility] [id number] [place] [address]- 5384 Nov, [facility] [place] [facility] [address] [facility] [id number] [place] [address]- 9186 10 Oct, 2009 [facility] [address] [facility] [id number] [address]- 7863 Sep, [facility] [address] [facility] [id number] [address] Aug, [facility] [address] [facility] [id number] [address] Feb, IMMUNIZATIONS No Known Immunizations SOCIAL HISTORY Never Assessed REASON FOR VISIT Medication refill request/question PLAN OF CARE VITAL SIGNS MEDICATIONS Unknown [...] frontal lobe from car acciedent/ hospital in [place] 2007 Hospitalization History [facility]-Mental stay 2017
--- OUTSIDE RECORDS SUMMARY | 2018-09-19 09:37 | XMS REPORT | Continuity of Care Document ---
Author Author Formerly [facility] Address Unknown Phone Unavailable Allergies Active Description Code Type Severity Reaction Onset Reported/Identified Relationship to Patient Clinical Status Yes NKA Drug N/A N/A Yes Sulfa (Sulfonamide Antibiotics) [id number] Drug Allergy Unknown N/A 2006 Yes sulfADIAZINE Drug Allergy 03/01/2009 Yes sulfADIAZINE Drug Allergy N/ A N/A 03/01/2009 Medications There is no data. Problems Date Dx Coded Attending Type Code Diagnosis Diagnosed By 04/12/2008 070.54 HEPATITIS C CHRONIC 04/12/2008 625.0 DYSPAREUNIA 04/12/2008 789.00 ABDOMINAL PAIN UNSPECIFIED SITE 04/12/2008 795.03 PAPANICOLAOU SMEAR OF CERVIX WITH LOW GRADE SQUAMOUS INTRAEPITHELIAL LESION (LGSIL) 04/12/2008 V25.41 SURVEILLANCE OF CONTRACEPTIVE PILL 04/12/2008 V72.31 Pelvic Exam ( Internal) 04/12/2008 V74.5 SCREENING EXAMINATION FOR VENEREAL DISEASE 04/12/2008 070.54 HEPATITIS C CHRONIC 04/12/2008 625.0 DYSPAREUNIA 04/12/2008 789.00 ABDOMINAL PAIN UNSPECIFIED SITE 04/12/2008 795.03 PAPAN[place]OLAOU SMEAR OF CERVIX WITH LOW GRADE SQUAMOUS INTRAEPITHELIAL LESION (LGSIL) 04/12/2008 V25.41 SURVEILLANCE OF CONTRACEPTIVE PILL 04/12/2008 V72.31 Pelvic Exam ( Internal) 04/12/2008 V74.5 SCREENING EXAMINATION FOR VENEREAL DISEASE 04/12/2008 070.54 HEPATITIS C CHRONIC 04/12/2008 625.0 DYSPAREUNIA 04/12/2008 789.00 ABDOMINAL PAIN UNSPECIFIED SITE 04/12/2008 795.03 PAPAN[place] SMEAR OF CERVIX WITH LOW GRADE SQUAMOUS INTRAEPITHELIAL LESION (LGSIL) 04/12/2008 V25.41 SURVEILLANCE OF CONTRACEPTIVE PILL 04/12/2008 V72.31 Pelvic Exam ( Internal) 04/12/2008 V74.5 SCREENING EXAMINATION FOR VENEREAL DISEASE 04/12/2008 JONO CAMARGO DO 070.54 HEPATITIS C CHRONIC 04/12/2008 JONO CAMARGO DO 625.0 DYSPAREUNIA 04/12/2008 JONO CAMARGO DO 789.00 ABDOMINAL PAIN UNSPECIFIED SITE 04/12/2008 JONO CAMARGO DO 795.03 PAPAN[place] SMEAR OF CERVIX WITH LOW GRADE SQUAMOUS INTRAEPITHELIAL LESION ( LGSIL) 04/12/2008 JONO CAMARGO DO V25.41 SURVEILLANCE OF CONTRACEPTIVE PILL 04/12/2008 JONO CAMARGO DO V72.31 Pelvic Exam (Internal) 04/12/2008 JONO CAMARGO DO V74.5 SCREENING EXAMINATION FOR VENEREAL DISEASE 03/22/2009 078.11 WARTS GENITAL 03/22/2009 078.11 WARTS GENITAL 03/22/2009 078.11 WARTS GENITAL 03/22/2009 JONO CAMARGO DO 078.11 WARTS GENITAL 05/17/2009 070.30 VIRAL HEPATITIS B WITHOUT HEPATIC COMA ACUTE OR UNSPECIFIED WITHOUT HEPATITIS DELTA 05/17/2009 V25.9 CONTRACEPTIVE MANAGEMENT, UNSPECIFIED 05/17/2009 070.30 VIRAL HEPATITIS B WITHOUT HEPATIC COMA ACUTE OR UNSPECIFIED WITHOUT HEPATITIS DELTA 05/17/2009 V25.9 CONTRACEPTIVE MANAGEMENT, UNSPECIFIED 05/17/2009 070.30 VIRAL HEPATITIS B WITHOUT HEPATIC COMA ACUTE OR UNSPECIFIED WITHOUT HEPATITIS DELTA 05/17/2009 V25.9 CONTRACEPTIVE MANAGEMENT, UNSPECIFIED 05/17/2009 JONO CAMARGO DO 070.30 VIRAL HEPATITIS B WITHOUT HEPATIC COMA ACUTE OR UNSPECIFIED WITHOUT HEPATITIS DELTA 05/17/2009 JONO CAMARGO DO V25.9 CONTRACEPTIVE MANAGEMENT, UNSPECIFIED 09/13/2009 278.02 OVERWEIGHT 09/13/2009 723.1 PAIN NECK 09/13/2009 784.0 HEADACHE 09/13/2009 278.02 OVERWEIGHT 09/13/2009 723.1 PAIN NECK 09/13/2009 784.0 HEADACHE 09/13/2009 278.02 OVERWEIGHT 09/13/2009 723.1 PAIN NECK 09/13/2009 784.0 HEADACHE 09/13/2009 JONO CAMARGO DO 278.02 OVERWEIGHT 09/13/2009 JONO CAMARGO DO 723.1 PAIN NECK 09/13/2009 JONO CAMARGO DO 784.0 HEADACHE 10/17/2009 795.04 Pap Smear (+ ) High Grade Squamous Intraepithelial Lesion 10/17/2009 795.04 Pap Smear (+ ) High Grade Squamous Intraepithelial Lesion 10/17/2009 795.04 Pap Smear (+ ) High Grade Squamous Intraepithelial Lesion 10/17/2009 JONO CAMARGO DO 795.04 Pap Smear (+) High Grade Squamous Intraepithelial Lesion 10/31/2009 622.11 MILD DYSPLASIA OF CERVIX 10/31/2009 622.11 MILD DYSPLASIA OF CERVIX 10/31/2009 622.11 MILD DYSPLASIA OF CERVIX 10/31/2009 JONO CAMARGO DO 622.11 MILD DYSPLASIA OF CERVIX 11/13/2009 625.8 vaginal odor 11/13/2009 625.9 pelvic pain 11/13/2009 625.8 vaginal odor 11/13/2009 625.9 pelvic pain 11/13/2009 625.8 vaginal odor 11/13/2009 625.9 pelvic pain 11/13/2009 JONO CAMARGO DO 625.8 vaginal odor 11/13/2009 JONO CAMARGO DO 625.9 pelvic pain 12/06/2009 388.70 earache 12/06/2009 460 COMMON COLD 12/06/2009 477.9 ALLERGIC RHINITIS 12/06/2009 786.2 cough 12/06/2009 388.70 earache 12/06/2009 460 COMMON COLD 12/06/2009 477.9 ALLERGIC RHINITIS 12/06/2009 786.2 cough 12/06/2009 388.70 earache 12/06/2009 460 COMMON COLD 12/06/2009 477.9 ALLERGIC RHINITIS 12/06/2009 786.2 cough 12/06/2009 JONO CAMARGO DO K 388.70 earache 12/06/2009 JONO CAMARGO DO K 460 COMMON COLD 12/06/2009 ELIZABETH CAMARGO DOA K 477.9 ALLERGIC RHINITIS 12/06/2009 JONO CAMARGO DO K 786.2 cough 01/15/2010 305.90 DRUG ABUSE - UNSPECIFIED 01/15/2010 V69.2 HIGH-RISK SEXUAL BEHAVIOR 01/15/2010 305.90 DRUG ABUSE - UNSPECIFIED 01/15/2010 V69.2 HIGH-RISK SEXUAL BEHAVIOR 01/15/2010 305.90 DRUG ABUSE - UNSPECIFIED 01/15/2010 V69.2 HIGH-RISK SEXUAL BEHAVIOR 01/15/2010 JONO CAMARGO DO 305.90 DRUG ABUSE - UNSPECIFIED 01/15/2010 JONO CAMARGO DO V69.2 HIGH-RISK SEXUAL BEHAVIOR 08/28/2010 465.9 ACUTE UPPER RESPIRATORY INFECTIONS OF UNSPECIFIED SITE 08/28/2010 465.9 ACUTE UPPER RESPIRATORY INFECTIONS OF UNSPECIFIED SITE 08/28/2010 465.9 ACUTE UPPER RESPIRATORY INFECTIONS OF UNSPECIFIED SITE 08/28/2010 JONO CAMARGO DO 465.9 ACUTE UPPER RESPIRATORY INFECTIONS OF UNSPECIFIED SITE 09/25/2010 626.9 UNSPECIFIED DISORDERS OF MENSTRUATION AND OTHER ABNORMAL BLEEDING FROM FEMALE GENITAL TRACT 09/25/2010 626.9 UNSPECIFIED DISORDERS OF MENSTRUATION AND OTHER ABNORMAL BLEEDING FROM FEMALE GENITAL TRACT 09/25/2010 626.9 UNSPECIFIED DISORDERS OF MENSTRUATION AND OTHER ABNORMAL BLEEDING FROM FEMALE GENITAL TRACT 09/25/2010 JONO CAMARGO DO 626.9 UNSPECIFIED DISORDERS OF MENSTRUATION AND OTHER ABNORMAL BLEEDING FROM FEMALE GENITAL TRACT 09/27/2010 780.52 INSOMNIA UNSPECIFIED 09/27/2010 780.52 INSOMNIA UNSPECIFIED 09/27/2010 780.52 INSOMNIA UNSPECIFIED 09/27/2010 JONO CAMARGO DO 780.52 INSOMNIA UNSPECIFIED 04/23/2011 300.4 DYSTHYMIC DISORDER 04/23/2011 300.4 DYSTHYMIC DISORDER 04/23/2011 300.4 DYSTHYMIC DISORDER 04/23/2011 JONO CAMARGO DO 300.4 DYSTHYMIC DISORDER 06/17/2011 034.0 STREP THROAT 06/17/2011 780.60 FEVER UNSPECIFIED 06/17/2011 034.0 STREP THROAT 06/17/2011 780.60 FEVER UNSPECIFIED 06/17/2011 034.0 STREP THROAT 06/17/2011 780.60 FEVER UNSPECIFIED 06/17/2011 JONO CAMARGO DO 034.0 STREP THROAT 06/17/2011 JONO CAMARGO DO 780.60 FEVER UNSPECIFIED 08/07/2011 706.1 ACNE 08/07/2011 706.1 ACNE 08/07/2011 706.1 ACNE 08/07/2011 JONO CAMARGO DO 706.1 ACNE 09/03/2011 296.90 MOOD DISORDER NOS 09/03/2011 296.90 MOOD DISORDER NOS 09/03/2011 296.90 MOOD DISORDER NOS 09/03/2011 JONO CAMARGO DO 296.90 MOOD DISORDER NOS 03/22/2012 726.2 OTHER AFFECTIONS OF SHOULDER REGION NOT ELSEWHERE CLASSIFIED 03/22/2012 726.2 OTHER AFFECTIONS OF SHOULDER REGION NOT ELSEWHERE CLASSIFIED 03/22/2012 726.2 OTHER AFFECTIONS OF SHOULDER REGION NOT ELSEWHERE CLASSIFIED 03/22/2012 JONO CAMARGO DO 726.2 OTHER AFFECTIONS OF SHOULDER REGION NOT ELSEWHERE CLASSIFIED 10/27/2012 487.1 INFLUENZA 10/27/2012 487.1 INFLUENZA 10/27/2012 487.1 INFLUENZA 10/27/2012 JONO CAMARGO DO Ghanshyam 487.1 INFLUENZA 02/08/2013 724.3 SCIATICA 02/08/2013 JONO CAMARGO DO Ghanshyam 724.3 SCIATICA 04/09/2017 PATRIC COOK CARD SORTER Ot M54.41 LUMBAGO WITH SCIATICA, RIGHT SIDE 04/09/2017 COOK, PATRIC A CARD SORTER Ot M54.42 LUMBAGO WITH SCIATICA, LEFT SIDE 04/14/2017 COOKCASEY MEJIAE A CARD SORTER Ot M54.41 LUMBAGO WITH SCIATICA, RIGHT SIDE 04/14/2017 COOK, PATRIC A CARD SORTER Ot M54.42 LUMBAGO WITH SCIATICA, LEFT SIDE 04/22/2017 COOK, PATRIC A CARD SORTER Ot M54.41 LUMBAGO WITH SCIATICA, RIGHT SIDE 04/22/2017 COOK, PATRIC A CARD SORTER Ot M54.42 LUMBAGO WITH SCIATICA, LEFT SIDE 06/01/2018 ADDY FRANCOIS, AVELINA Hanley Ot B18.2 CHRONIC VIRAL HEPATITIS C 06/04/2018 SHAVONNE EPPERSON Ot J06.9 ACUTE UPPER RESPIRATORY INFECTION, UNSPE 06/04/2018 SHAVONNE EPPERSON Ot R05 COUGH 06/04/2018 SHAVONNE EPPERSON Ot Z88.2 ALLERGY STATUS TO SULFONAMIDES STATUS 06/07/2018 SHAVONNE EPPERSON Ot J06.9 ACUTE UPPER RESPIRATORY INFECTION, UNSPE 06/07/2018 SHAVONNE EPPERSON Ot R05 COUGH 06/07/2018 SHAVONNE EPPERSON Ot Z88.2 ALLERGY STATUS TO SULFONAMIDES STATUS 06/17/2018 ADDY FRANCOIS, AVELINA Hanley Ot B18.2 CHRONIC VIRAL HEPATITIS C Procedures Code Description [place] [address] INFLUENZA A & B (IN-HOUSE) 10/27/2012 32594 THERAPUTIC INJ SQ/IM 02/08/2013 J1030 DEPO MEDROL 40 MG INJ 02/08/2013 J1100 DEXAMETHASONE SODIUM PHOS, 1 MG 02/08/2013 Results Test Result Range Pap Lb, HPV-hr - 01/27/17 10:10 HPV, high-risk Negative Negative DIAGNOSIS: Comment Specimen adequacy: Comment Clinician provided ICD10: Comment Performed by: Comment . . Note: Comment Genital Culture, Routine - 01/27/17 10:10 Genital Culture, Routine Note HSV 1 and 2-Specific Ab, IgG - 01/27/17 10:10 HSV 1 IgG, Type Spec 19.70 index 0.00-0.90 HSV 2 IgG, Type Spec 5.84 index 0.00-0.90 HSV 1 and 2 IgM Abs, Indirect - 01/27/17 10:10 HSV 1 IgM Antibodies <1:10 titer <1:10 HSV 2 IgM Antibodies <1:10 titer <1:10 CBC With Differential/Platelet - 02/24/17 08:06 WBC 14.8 x10E3/uL 3.4-10.8 RBC 4.40 x10E6/uL 3.77-5.28 Hemoglobin 13.4 g/dL 11.1-15.9 Hematocrit 40.3 % 34.0-46.6 MCV 92 fL 79-97 MCH 30.5 pg 26.6-33.0 MCHC 33.3 g/dL 31.5-35.7 RDW 12.4 % 12.3-15.4 Platelets 305 x10E3/uL 150-379 Neutrophils 83 % Lymphs 11 % Monocytes 6 % Eos 0 % Basos 0 % Neutrophils (Absolute) 12.2 x10E3/uL 1.4-7.0 Lymphs (Absolute) 1.6 x10E3/uL 0.7-3.1 Monocytes(Absolute) 0.9 x10E3/uL 0.1-0.9 Eos (Absolute) 0.0 x10E3/uL 0.0-0.4 Baso (Absolute) 0.0 x10E3/uL 0.0-0.2 Immature Granulocytes 0 % Immature Grans (Abs) 0.0 x10E3/uL 0.0-0.1 Comp. Metabolic Panel (14) - 02/24/17 08:06 Glucose, Serum 94 mg/dL 65-99 BUN 12 mg/dL 6-20 Creatinine, Serum 0.55 mg/dL 0.57-1.00 eGFR If NonAfricn Am 122 mL/min/1.73 >59 eGFR If Africn Am 141 mL/min/1.73 >59 BUN/Creatinine Ratio 22 9-23 Sodium, Serum 140 mmol/L 134-144 Potassium, Serum 4.3 mmol/L 3.5-5.2 Chloride, Serum 102 mmol/L 96-106 Carbon Dioxide, Total 22 mmol/L 18-29 Calcium, Serum 9.8 mg/dL 8.7-10.2 Protein, Total, Serum 7.2 g/dL 6.0-8.5 Albumin, Serum 4.3 g/dL 3.5-5.5 Globulin, Total 2.9 g/dL 1.5-4.5 A/G Ratio 1.5 1.2-2.2 Bilirubin, Total 0.2 mg/dL 0.0-1.2 Alkaline Phosphatase, S 82 IU/L 39-117 AST (SGOT) 21 IU/L 0-40 ALT (SGPT) 34 IU/L 0-32 Lipid Panel - 02/24/17 08:06 Cholesterol, Total 177 mg/dL 100-199 Triglycerides 90 mg/dL 0-149 HDL Cholesterol 74 mg/dL >39 VLDL Cholesterol Binu 18 mg/dL 5-40 LDL Cholesterol Calc 85 mg/dL 0-99 TSH - 02/24/17 08:06 TSH 0.318 uIU/mL 0.450-4.500 LIVER FIBROSIS PANEL - 05/31/18 07:35 [id number] See Note NRG GGT (gamma glutamyl transferase) 24 U/L 7-33 Serum ragweed IgE antibody assay 31 U/L 9-40 PLATELET COUNT REF 368 10*9/L 177-419 MEAN PLT VOLUME 10.0 % 9.3-12.9 Liver fibrosis score panel - Serum or Plasma Calculated by FibroMeter A0/A1 NRG Liver fibrosis interpretation in Serum Qualitative See Report NRG FIBROMETER ALT 41 U/L 5-40 FIBROMETER BUN 13 % 7-20 [id number] 128 % 131-293 Prothrombin index in Platelet poor plasma by Coagulation assay 94 % 90-120 Fibrosis stage 0 NRG Calculated serum or plasma liver fibrosis score determination by FibroMeter 0.23 NRG Streptococcus pyogenes antigen detection - 06/04/18 16:48 Streptococcus pyogenes antigen detection NEGATIVE NEGATIVE Bacterial throat culture - 06/04/18 16:48 Bacterial throat culture NBS NRG CMP - 06/16/18 14:02 GLUCOSE 80 mg/dL 65-99 UREA NITROGEN (BUN) 11 mg/dL 7-25 CREATININE 0.70 mg/dL 0.50-1.10 eGFR NON-AFR. CITIZEN OF [place] 111 mL/min/1.73m2 > OR=60 eGFR 129 mL/min/1.73m2 > OR=60 BUN/CREATININE RATIO NOT APPLICABLE (calc) 6-22 SODIUM 140 mmol/L 135-146 POTASSIUM 4.2 mmol/L 3.5-5.3 CHLORIDE 105 mmol/L 98-110 CARBON DIOXIDE 28 mmol/L 20-32 CALCIUM 9.6 mg/dL 8.6-10.2 PROTEIN, TOTAL 7.7 g/dL 6.1-8.1 ALBUMIN 4.3 g/dL 3.6-5.1 GLOBULIN 3.4 g/dL (calc) 1.9-3.7 ALBUMIN/GLOBULIN RATIO 1.3 (calc) 1.0-2.5 BILIRUBIN, TOTAL 0.3 mg/dL 0.2-1.2 ALKALINE PHOSPHATASE 88 U/L 33-115 AST 33 U/L 10-30 ALT 43 U/L 6-29 TSH - 06/16/18 14:02 TSH 1.11 mIU/L NRG Encounters ACCT No. Visit Date/Time Discharge Status Pt. Type Provider Facility Loc./Unit Complaint [id number] 02/08/2013 09:48:00 02/08/2013 23:59:59 CLS Outpatient JONO CAMARGO DO [id number] 10/27/2012 10:27:00 10/27/2012 23:59:59 CLS Outpatient [id number] 02/08/2013 09:48:00 Document Registration [id number] 01/21/2013 14:22:00 Document Registration [id number] 01/14/2018 16:56:00 01/19/2018 13:20:00 DIS Preadmit Susi Carlos [facility] MBU SAURABH 5.27.18 [id number] 02/25/2017 08:07:00 Document Registration [id number] 06/04/2018 16:05:00 06/04/2018 17:52:00 DIS Emergency SHAVONNE EPPERSON [facility] ER COUGH/CONGESTION [id number] 05/31/2018 06:52:00 05/31/2018 23:59:59 CLS Outpatient ADDY FRANCOIS, AVELINA Hanley [facility] RAD CHRONIC HEP C [id number] 04/08/2017 08:19:00 04/22/2017 15:24:00 DIS Outpatient PATRIC COOK CARD SORTER [facility] REHAB LUMBAGO WITH RADICULOPATHY [id number] 05/31/2018 06:52:00 Document Registration [id number] 01/14/2018 16:56:04 ACT Document Registration [id number] 01/30/2017 17:10:00 Document Registration [id number] 04/01/2018 11:20:00 04/01/2018 23:59:59 CLS Outpatient PATRIC COOK [facility] [id number] 06/16/2018 13:00:00 Document Registration [id number] 01/30/2017 14:09:00 Document Registration [id number] 01/29/2017 16:08:00 Document Registration
[2018-09-19 09:58] LABS: BILIRUBIN,URINE NEGATIVE (NEGATIVE); CLARITY,URINE CLEAR; COLOR,URINE YELLOW; GLUCOSE, URINE (UA) NEGATIVE (NEGATIVE); KETONES,URINE NEGATIVE (NEGATIVE); LEUKOCYTE ESTERASE ,URINE 3+ (NEGATIVE); NITRITE,URINE NEGATIVE (NEGATIVE); PH,URINE 6.5 (5-9); PROTEIN,URINE NEGATIVE (NEGATIVE); UROBILINOGEN,URINE NORMAL (NORMAL)
[2018-09-19 10:07] LABS: BACTERIA,URINE MODERATE /HPF
[2018-09-19] MEDS ORDERED: CEFU250T80 PO (10:28)
[2018-09-19] MEDS ORDERED: ONDA8TAB13 PO (10:28)
--- NOTE | 2018-09-19 10:28 | ED GU-Female ---
General Chief Complaint: -Female Stated Complaint: CONSTANT URGE TO URINATE/NAUSEA/TIRED Nursing Triage Note: PT CO OF CONSTANT URGE TO URINATE, TIREDNESS, NAUSEA FOR 2 MONTHS. HAS STRESSFUL LIFE ISSUES Nursing Sepsis Screen: No Definite Risk Source: patient Exam Limitations: no limitations History of Present Illness Date Seen by Provider: Sep 19, 2018 Time Seen by Provider: 10:24 Initial Comments To ER with reports of a constant urge to urinate without ability to do so, only dribbling when she does urinate. Gen. fatigue, nausea for 2 months. She states that she checked into [facility] about a month ago and her potassium was low at that time. Timing/Duration: getting worse Severity/Quality: moderate Location: suprapubic Radiation: none Associated Symptoms: dysuria, nausea/vomiting Allergies and Home Medications Allergies Coded Allergies: Sulfa (Sulfonamides) (Verified Allergy, Unknown, 05/10/07) Patient Home Medication List Home Medication List Reviewed: Yes Review of Systems Review of Systems Constitutional: see HPI; No chills, No fever; malaise, weakness EENTM: see HPI Respiratory: no symptoms reported Cardiovascular: no symptoms reported Gastrointestinal: nausea Genitourinary: see HPI, dysuria Musculoskeletal: no symptoms reported Skin: no symptoms reported Psychiatric/Neurological: No Symptoms Reported Past Hjcvmfb-Pitalh-Ojydul Hx Patient Social History Type Used: Electronic/Vapor 2nd Hand Smoke Exposure: No Recent Foreign Travel: No Contact w/Someone Who Travel: No Recent Infectious Disease Expo: No Recent Hopitalizations: No (NUMEROUS TIMES) Past Medical History Surgeries: Yes (APPENDECTOMY) Respiratory: Yes Cardiac: No Neurological: Yes Reproductive Disorders: No Gastrointestinal: Yes Musculoskeletal: Yes Endocrine: No Psychosocial: Yes (MOOD DISORDER) Blood Disorders: No Physical Exam Vital Signs Vital Signs - First Documented 09/19/18 09:54 Temp 98.3 Pulse 85 Resp 18 B/P (MAP) 119/71 (87) Pulse Ox 95 Capillary Refill : Less Than 3 Seconds Height, Weight, BMI Height: 6'0" Weight: 310lbs. 6.0oz. 140.645220my; BMI Method:Stated General Appearance: WD/WN, no apparent distress, obese HEENT: PERRL/EOMI, normal ENT inspection Neck: non-tender, full range of motion Respiratory: normal breath sounds, no respiratory distress, no accessory muscle use Gastrointestinal: normal bowel sounds, non tender, soft Extremities: normal range of motion, non-tender Neurologic/Psychiatric: alert, normal mood/affect, oriented x 3 Skin: normal color, warm/dry Progress/Results/Core Measures Suspected Sepsis Recent Fever Within 48 Hours: No Infection Criteria Present: None New/Unexplained Altered Menta: No Sepsis Screen: No Definite Risk SIRS Temperature:98.3 Pulse: 85 Respiratory Rate: 18 Blood Pressure 119 /71 Mean: 87 Results/Orders Lab Results Laboratory Tests Test 09/19/18 09:40 Range/Units Urine Color YELLOW Urine Clarity CLEAR Urine pH 6.5 5-9 Urine Specific [place] 1.010 L 1.016-1.022 Urine Protein NEGATIVE NEGATIVE Urine Glucose (UA) NEGATIVE NEGATIVE Urine Ketones NEGATIVE NEGATIVE Urine Nitrite NEGATIVE NEGATIVE Urine Bilirubin NEGATIVE NEGATIVE Urine Urobilinogen NORMAL NORMAL MG/DL Urine Leukocyte Esterase 3+ H NEGATIVE Urine RBC (Auto) NEGATIVE NEGATIVE Urine RBC NONE /HPF Urine WBC 5-10 H /HPF Urine Squamous Epithelial Cells 10-25 H /HPF Urine Crystals NONE /LPF Urine Bacteria MODERATE H /HPF Urine Casts NONE /LPF Urine Mucus NEGATIVE /LPF Urine Culture Indicated YES My Orders Orders - ITALIA AYALA APRN Cbc With Automated Diff (09/19/18 10:23) Basic Metabolic Panel (09/19/18 10:23) Hcg,Qualitative Serum (09/19/18 10:23) Vital Signs/I&O 09/19/18 09:54 Temp 98.3 Pulse 85 Resp 18 B/P (MAP) 119/71 (87) Pulse Ox 95 Capillary Refill : Less Than 3 Seconds Blood Pressure Mean: 87 Departure Impression Primary Impression: Urinary tract infection Qualified Codes: N30.00 - Acute cystitis without hematuria Disposition: HOME, SELF-CARE Condition: Stable Departure-Patient Inst. Decision time for Depature: 10:25 Referrals: [facility] (PCP/Family) Primary Care Physician Patient Instructions: Urinary Tract Infection, Adult (DC) Add. Discharge Instructions: 1. Antibiotics as directed 2. Follow-up with your doctor next week 3. All discharge instructions reviewed with patient and/or family. Voiced understanding. Scripts Ondansetron (Ondansetron Odt) 8 Mg Tab.rapdis 8 MG PO Q6H PRN for NAUSEA/VOMITING, #10 TAB Prov: ITALIA AYALA APRN 09/19/18 Cefuroxime Axetil (Cefuroxime) 250 Mg Tablet 250 MG PO BID, #10 TAB Prov: ITALIA AYALA APRN 09/19/18 ITALIA AYALA APRN Sep 19, 2018 10:28
[2018-09-19 11:00] LABS: BASOPHILS % (AUTO) 0 % (0-10); EOSINOPHILS # (AUTO) 0.1 10^3/uL (0.0-0.3); EOSINOPHILS % (AUTO) 1 % (0-10); HEMATOCRIT 38 % (35-52); HEMOGLOBIN 12.6 G/DL (11.5-16.0); LYMPHOCYTES # (AUTO) 2.1 X 10^3 (1.0-4.0); LYMPHOCYTES % (AUTO) 18 % (12-44); MEAN CORPUSCULAR HEMOGLOBIN 29 PG (25-34); MEAN CORPUSCULAR HGB CONC 33 G/DL (32-36); MEAN CORPUSCULAR VOLUME 88 FL (80-99); MEAN PLATELET VOLUME 9.8 FL (7.4-10.4); MONOCYTES # (AUTO) 0.7 X 10^3 (0.0-1.0); MONOCYTES % (AUTO) 6 % (0-12); NEUTROPHILS # (AUTO) 8.8 X 10^3 (1.8-7.8); NEUTROPHILS % (AUTO) 75 % (42-75); PLATELET COUNT 318 10^3/uL (130-400); RED BLOOD COUNT 4.32 10^6/uL (4.35-5.85); RED CELL DISTRIBUTION WIDTH 12.7 % (10.0-14.5); WHITE BLOOD COUNT 11.7 10^3/uL (4.3-11.0)
[2018-09-19 11:14] LABS: BUN/CREATININE RATIO 9; CALCIUM 9.6 MG/DL (8.5-10.1); CARBON DIOXIDE 23 MMOL/L (21-32); CHLORIDE 105 MMOL/L (98-107); CREATININE SERUM 0.74 MG/DL (0.60-1.30); GFR ESTIMATED > 60; GLUCOSE 96 MG/DL (70-105); POTASSIUM 4.2 MMOL/L (3.6-5.0); SODIUM 138 MMOL/L (135-145)
[2018-09-19 11:19] VITALS: BP 119/71
== END 2018-09-19 11:19 | disposition home or self-care (01) ==
LOC: EDUNIT# 09:25 → ER 09:26
DX: N39.0 Urinary tract infection, site not specified (principal); F39 Unspecified mood [affective] disorder; Z88.2 Allergy status to sulfonamides; Z90.49 Acquired absence of other specified parts of digestive tract
CPT/HCPCS: 36415; 80048; 81000; 84703; 85025; 87088; 99282

== ENCOUNTER 2018-09-23 13:40 | Emergency (ER) | payer MEDICAID | END 2018-09-23 15:24 | disposition home or self-care (01) | LOC: ER 13:40 ==

== ENCOUNTER 2018-11-24 17:03 | Emergency (ER) | payer MEDICAID ==
[~2018-11-24] VITALS: Ht 182.9 cm; Wt 136.1 kg
[~2018-11-24 17:03] MED LIST: CEFU250T80 PO; ONDA8TAB13 PO
[2018-11-24] MEDS ORDERED: ALPRAZolam 0.25 MG (XANAX) TAB PO ONE (17:15)
[2018-11-24] MEDS ORDERED: ASPIRIN 81 MG CHEW (CHILDREN'S ASA) PO ONE ×2 (17:15→18:15)
--- NOTE | 2018-11-24 17:18 | ED Chest Pain ---
General Stated Complaint: CHEST PAIN,HEADACHE Source: patient Exam Limitations: no limitations History of Present Illness Date Seen by Provider: Nov 24, 2018 Time Seen by Provider: 17:17 Initial Comments To ER per private vehicle with reports of chest pain and headache that began last night. Patient states that she is under an extreme amount of stress as her daughter is missing and went missing on Thursday, 2 days ago. Her daughter is a type I diabetic and has been without insulin and she is very concerned about this specifically. She states "I didn't want to drink or use so I came here". Timing/Duration: constant Severity/Quality: moderate Location: central Radiation: no radiation Activities at Onset: none ASA po ENROLLMENT ELIGIBILITY REPRESENTATIVE: No NTG SL ENROLLMENT ELIGIBILITY REPRESENTATIVE: No Allergies and Home Medications Allergies Coded Allergies: Sulfa (Sulfonamide Antibiotics) (Verified Allergy, Unknown, 05/10/07) Home Medications Buspirone HCl 5 Mg Tablet, 5 MG PO BID Prescribed by: ITALIA AYALA on 11/24/18 192 Cefuroxime Axetil 250 Mg Tablet, 250 MG PO BID Prescribed by: ITALIA AYALA on 09/19/18 1028 Hydroxyzine Pamoate 25 Mg Capsule, 25 MG PO TID PRN for ANXIETY Prescribed by: ITALIA AYALA on 11/24/18 1839 Ondansetron 8 Mg Tab.rapdis, 8 MG PO Q6H PRN for NAUSEA/VOMITING Prescribed by: ITALIA AYALA on 09/19/18 1028 Patient Home Medication List Home Medication List Reviewed: Yes Review of Systems Review of Systems Constitutional: see HPI EENTM: No Symptoms Reported Respiratory: No Symptoms Reported Cardiovascular: See HPI, Chest Pain Gastrointestinal: No Symptoms Reported Genitourinary: No Symptoms Reported Musculoskeletal: no symptoms reported Skin: no symptoms reported Psychiatric/Neurological: No Symptoms Reported Endocrine: No Symptoms Reported Past Otimuft-Gppqru-Biebnu Hx Patient Social History Type Used: Electronic/Vapor 2nd Hand Smoke Exposure: No Recent Foreign Travel: No Contact w/Someone Who Travel: No Recent Hopitalizations: No (NUMEROUS TIMES) Past Medical History Surgeries: Yes (APPENDECTOMY) Respiratory: Yes Cardiac: No Neurological: Yes Traumatic Brain Injury Reproductive Disorders: No Gastrointestinal: Yes Musculoskeletal: Yes Endocrine: No HEENT: No Cancer: No Psychosocial: Yes (MOOD DISORDER) Personality Disorder Blood Disorders: No Adverse Reaction/Blood Tranf: No Physical Exam Vital Signs Vital Signs - First Documented 11/24/18 17:08 Temp 98.1 Pulse 108 Resp 14 B/P (MAP) 152/127 (135) Pulse Ox 99 O2 Delivery Room Air Capillary Refill : Height, Weight, BMI Height: 6'0" Weight: 310lbs. 6.0oz. 140.041512jj; BMI Method:Stated General Appearance: No Apparent Distress, Anxious (sobbing) Respiratory: Normal Breath Sounds, No Accessory Muscle Use, No Respiratory Distress Cardiovascular: Normal Peripheral Pulses, Tachycardia Gastrointestinal: Normal Bowel Sounds, Non Tender, Soft Extremity: Normal Capillary Refill, Normal Inspection Neurologic/Psychiatric: Alert, Oriented x3 Skin: Normal Color, Warm/Dry Progress/Results/Core Measures Results/Orders Lab Results Laboratory Tests Test 11/24/18 17:25 Range/Units White Blood Count 12.6 H 4.3-11.0 10^3/uL Red Blood Count 4.55 4.35-5.85 10^6/uL Hemoglobin 13.4 11.5-16.0 G/DL Hematocrit 40 35-52 % Mean Corpuscular Volume 87 80-99 FL Mean Corpuscular Hemoglobin 30 25-34 PG Mean Corpuscular Hemoglobin Concent 34 32-36 G/DL Red Cell Distribution Width 12.3 10.0-14.5 % Platelet Count 364 130-400 10^3/uL Mean Platelet Volume 9.6 7.4-10.4 FL Neutrophils (%) (Auto) 67 42-75 % Lymphocytes (%) (Auto) 24 12-44 % Monocytes (%) (Auto) 8 0-12 % Eosinophils (%) (Auto) 1 0-10 % Basophils (%) (Auto) 0 0-10 % Neutrophils # (Auto) 8.5 H 1.8-7.8 X 10^3 Lymphocytes # (Auto) 3.0 1.0-4.0 X 10^3 Monocytes # (Auto) 1.0 0.0-1.0 X 10^3 Eosinophils # (Auto) 0.1 0.0-0.3 10^3/uL Basophils # (Auto) 0.1 0.0-0.1 10^3/uL Sodium Level 138 135-145 MMOL/L Potassium Level 3.8 3.6-5.0 MMOL/L Chloride Level 106 98-107 MMOL/L Carbon Dioxide Level 21 21-32 MMOL/L Anion Gap 11 5-14 MMOL/L Blood Urea Nitrogen 6 L 7-18 MG/DL Creatinine 0.76 0.60-1.30 MG/DL Estimat Glomerular Filtration Rate > 60 BUN/Creatinine Ratio 8 Glucose Level 93 70-105 MG/DL Calcium Level 10.1 8.5-10.1 MG/DL Corrected Calcium 9.9 8.5-10.1 MG/DL Total Bilirubin 0.3 0.1-1.0 MG/DL Aspartate Amino Transf (AST/SGOT) 14 5-34 U/L Alanine Aminotransferase (ALT/SGPT) 11 0-55 U/L Alkaline Phosphatase 85 40-136 U/L Troponin I < 0.028 <0.028 NG/ML Total Protein 7.8 6.4-8.2 GM/DL Albumin 4.2 3.2-4.5 GM/DL My Orders Orders - ITALIA AYALA APRN Chest 1 View, Ap/Pa Only (11/24/18 17:15) Ekg Tracing (11/24/18 17:15) Troponin I (11/24/18 17:15) Cbc With Automated Diff (11/24/18 17:15) Comprehensive Metabolic Panel (11/24/18 17:15) Alprazolam Tablet (Xanax Tablet) (11/24/18 17:15) Aspirin Chewable Tablet (Baby Aspirin Ch (11/24/18 17:15) Diphenhydramine Injection (Benadryl Inje (11/24/18 18:00) Ketorolac Injection (Toradol Injection) (11/24/18 18:00) Ns Iv 1000 Ml (Sodium Chloride 0.9%) (11/24/18 18:00) Aspirin Chewable Tablet (Baby Aspirin Ch (11/24/18 18:15) Medications Given in ED Current Medications Medications Dose Ordered Sig/Karina Route Start Time Stop Time Status Last Admin Dose Admin Alprazolam 0.5 mg ONCE ONCE PO 11/24/18 17:15 11/24/18 17:17 DC 11/24/18 17:50 0.5 MG Aspirin 324 mg ONCE ONCE PO 11/24/18 18:15 11/24/18 18:16 DC 11/24/18 17:50 324 MG Diphenhydramine HCl 25 mg ONCE ONCE IVP 11/24/18 18:00 11/24/18 18:01 DC 11/24/18 18:17 25 MG Ketorolac Tromethamine 15 mg ONCE ONCE IVP 11/24/18 18:00 11/24/18 18:01 DC 11/24/18 18:17 15 MG Vital Signs/I&O 11/24/18 11/24/18 11/24/18 17:08 17:08 19:31 Temp 98.1 Pulse 108 90 Resp 14 14 B/P (MAP) 152/127 (135) 130/92 (105) Pulse Ox 99 93 O2 Delivery Room Air Room Air Room Air Departure Communication (Admissions) she has a history of methamphetamine and alcohol abuse. We should avoid any potentially addictive medications. Impression Primary Impression: Anxiety Disposition: HOME, SELF-CARE Condition: Stable Departure-Patient Inst. Decision time for Depature: 18:38 Referrals: [facility] [place] (PCP/Family) Primary Care Physician Patient Instructions: Chest Pain (DC), Stress Add. Discharge Instructions: . Return to ER for any concerns 2. Follow-up with your doctor next week 3. Scripts Hydroxyzine Pamoate (Vistaril) 25 Mg Capsule 25 MG PO TID PRN for ANXIETY, #14 CAP Prov: ITALIA AYALA LITHOGRAPHING MACHINE OPERATOR 11/24/18 ITALIA AYALA LITHOGRAPHING MACHINE OPERATOR Nov 24, 2018 17:18
[2018-11-24 17:39] LABS: BASOPHILS # (AUTO) 0.1 10^3/uL (0.0-0.1); BASOPHILS % (AUTO) 0 % (0-10); EOSINOPHILS # (AUTO) 0.1 10^3/uL (0.0-0.3); EOSINOPHILS % (AUTO) 1 % (0-10); HEMATOCRIT 40 % (35-52); HEMOGLOBIN 13.4 G/DL (11.5-16.0); LYMPHOCYTES % (AUTO) 24 % (12-44); MEAN CORPUSCULAR HEMOGLOBIN 30 PG (25-34); MEAN CORPUSCULAR HGB CONC 34 G/DL (32-36); MEAN CORPUSCULAR VOLUME 87 FL (80-99); MEAN PLATELET VOLUME 9.6 FL (7.4-10.4); MONOCYTES % (AUTO) 8 % (0-12); NEUTROPHILS # (AUTO) 8.5 X 10^3 (1.8-7.8); NEUTROPHILS % (AUTO) 67 % (42-75); PLATELET COUNT 364 10^3/uL (130-400); RED CELL DISTRIBUTION WIDTH 12.3 % (10.0-14.5); WHITE BLOOD COUNT 12.6 10^3/uL (4.3-11.0)
[2018-11-24 17:58] LABS: ALANINE AMINOTRANSFERASE 11 U/L (0-55); ALBUMIN 4.2 GM/DL (3.2-4.5); ALKALINE PHOSPHATASE 85 U/L (40-136); BILIRUBIN,TOTAL 0.3 MG/DL (0.1-1.0); BUN/CREATININE RATIO 8; CALCIUM 10.1 MG/DL (8.5-10.1); CARBON DIOXIDE 21 MMOL/L (21-32); CHLORIDE 106 MMOL/L (98-107); CREATININE SERUM 0.76 MG/DL (0.60-1.30); GFR ESTIMATED > 60; GLUCOSE 93 MG/DL (70-105); POTASSIUM 3.8 MMOL/L (3.6-5.0); SODIUM 138 MMOL/L (135-145); TOTAL PROTEIN 7.8 GM/DL (6.4-8.2)
[2018-11-24] MEDS ORDERED: diphenhydrAMINE 50 MG/ML INJ (BENADRYL) IVP ONE (18:00)
[2018-11-24] MEDS ORDERED: NS IV 1000 ML 1,000 ML IV SCH (18:00)
[2018-11-24] MEDS ORDERED: KETOROLAC 30 MG/ML VIAL IVP ONE (18:00)
--- NOTE | 2018-11-24 18:05 | Diagnostic Imaging Report ---
INDICATION: Chest pain. FINDINGS: The lungs are clear. The heart and vessels are normal. There is no effusion or pneumothorax. IMPRESSION: No acute appearing abnormality. Dictated by: Dictated on workstation # [id number]
[2018-11-24] MEDS ORDERED: HYDR25CA PO (18:39)
[2018-11-24] MEDS ORDERED: BUSP5TAB59 PO (19:25)
[2018-11-24 19:31] VITALS: BP 130/92
== END 2018-11-24 19:28 | disposition home or self-care (01) ==
LOC: EDUNIT# 17:03 → ER 17:04
DX: F41.9 Anxiety disorder, unspecified (principal); F60.9 Personality disorder, unspecified; F39 Unspecified mood [affective] disorder; Z88.2 Allergy status to sulfonamides; Z90.49 Acquired absence of other specified parts of digestive tract; Z87.820 Personal history of traumatic brain injury
CPT/HCPCS: 36415; 71045; 80053; 84484; 85025; 93005